=== PATIENT | female | born 1935 | race Two or more races ===

== ENCOUNTER 2016-12-27 15:17 | Inpatient (IN) | payer OTHER, MEDICAID ==
[~2016-12-27] VITALS: Ht 165.1 cm; Wt 63.5 kg
--- NOTE | 2016-12-27 15:32 | Emergency Room Report ---
History of Present Illness General Chief Complaint: Abdominal Pain Source: Patient, Medical Record Present Illness HPI Patient presents with complaints of right mid abdominal pain There is radiation in the mid abdomen lower abdomen pain started for the past several days Patient appears fairly uncomfortable Describes the pain as 8/10 sharp denies any diarrhea or constipation denies any fevers or chills Patient has had previous C-sections Denies any dysuria frequency denies any fall or trauma Allergies: Coded Allergies: No Known Allergies (Unverified , 12/27/16) Patient History Past Medical History: see triage record Pertinent Family History: none Reviewed Nursing Documentation: PMH: Agreed, PSxH: Agreed Nursing Documentation-PM Past Medical History: No History, Except For Hx Diabetes: Yes History Of Psychiatric Problem: Yes - anxiety Review of Systems All Other Systems: negative except mentioned in HPI Physical Exam Vital Signs Date Time Temp Pulse Resp B/P (MAP) Pulse Ox O2 Delivery O2 Flow Rate FiO2 12/27/16 15:12 98.4 88 16 153/90 100 Room Air Sp02 EP Interpretation: reviewed, normal General Appearance: mild distress - in acute pain Head: normocephalic, atraumatic Eyes: bilateral eye PERRL, bilateral eye EOMI ENT: hearing grossly normal, normal pharynx, TMs + canals normal, uvula midline Neck: full range of motion, supple, no meningismus, no bony tend Respiratory: lungs clear, normal breath sounds, no rhonchi, no respiratory distress, no retraction, no accessory muscle use Cardiovascular #1: normal peripheral pulses, regular rate, rhythm, no edema, no gallop, no JVD, no murmur Gastrointestinal: normal bowel sounds, soft, no mass, no organomegaly, non- distended, no guarding, no hernia, no pulsatile mass, no rebound, tenderness - Over the right mid and lower abdominal region, previous surgical scars are visible Genitourinary: no CVA tenderness Musculoskeletal: normal inspection Neurologic: oriented x3, responsive, caser III-XII nml as tested, motor strength/ tone normal, sensory intact Psychiatric: mood/affect normal Skin: normal color, no rash, warm/dry, palpation normal Lymphatic: normal inspection, no adenopathy Medical Decision Making Diagnostic Impression: Primary Impression: Abdominal pain Additional Impression: Gastritis and duodenitis ER Course With the history exam and presentation, multiple differentials considered, including but not limited to appendicitis, gastritis, cholecystitis, diverticulitis Patient's CT imaging shows evidence of possible duodenitis Given the patient's location of the pain and clinical correlation given the patient's continued discomfort her age and risk factors patient requires admission for further care Labs Test 12/27/16 15:33 12/27/16 15:35 Urine Color Pale yellow Urine Appearance Clear Urine pH 8 (4.5-8.0) Urine Specific [place] 1.010 (1.005-1.035) Urine Protein Negative (NEGATIVE) Urine Glucose (UA) Negative (NEGATIVE) Urine Ketones Negative (NEGATIVE) Urine Occult Blood Negative (NEGATIVE) Urine Nitrite Negative (NEGATIVE) Urine Bilirubin Negative (NEGATIVE) Urine Urobilinogen Normal MG/DL (0.0-1.0) Urine Leukocyte Esterase Negative (NEGATIVE) White Blood Count 9.9 K/UL (4.8-10.8) Red Blood Count 4.17 M/UL (4.20-5.40) Hemoglobin 12.9 G/DL (12.0-16.0) Hematocrit 38.9 % (37.0-47.0) Mean Corpuscular Volume 93 FL (80-99) Mean Corpuscular Hemoglobin 30.8 PG (27.0-31.0) Mean Corpuscular Hemoglobin Concent 33.1 G/DL (32.0-36.0) Red Cell Distribution Width 11.3 % (11.6-14.8) Platelet Count 335 K/UL (150-450) Mean Platelet Volume 5.8 FL (6.5-10.1) Neutrophils (%) (Auto) 62.6 % (45.0-75.0) Lymphocytes (%) (Auto) 30.9 % (20.0-45.0) Monocytes (%) (Auto) 4.8 % (1.0-10.0) Eosinophils (%) (Auto) 0.9 % (0.0-3.0) Basophils (%) (Auto) 0.8 % (0.0-2.0) Prothrombin Time 10.4 SEC (9.30-11.50) Prothromb Time International Ratio 1.0 (0.9-1.1) Activated Partial Thromboplast Time 33 SEC (23-33) Sodium Level 133 MMOL/L (136-145) Potassium Level 3.9 MMOL/L (3.5-5.1) Chloride Level 98 MMOL/L (98-107) Carbon Dioxide Level 21 MMOL/L (21-32) Anion Gap 14 (5-15) Blood Urea Nitrogen 11 mg/dL (7-18) Creatinine 0.8 MG/DL (0.55-1.30) Estimat Glomerular Filtration Rate mL/min (>60) Glucose Level 117 MG/DL (74-106) Calcium Level 10.4 MG/DL (8.5-10.1) Total Bilirubin 0.5 MG/DL (0.2-1.0) Aspartate Amino Transf (AST/SGOT) 15 U/L (15-37) Alanine Aminotransferase (ALT/SGPT) 14 U/L (12-78) Alkaline Phosphatase 76 U/L (46-116) Total Creatine Kinase 38 U/L (26-308) Creatine Kinase MB 1.9 NG/ML (0.0-3.6) Creatine Kinase MB Relative Index 5.0 Troponin I 0.000 ng/mL (0.000-0.056) Total Protein 8.4 G/DL (6.4-8.2) Albumin 4.1 G/DL (3.4-5.0) Globulin 4.3 g/dL Albumin/Globulin Ratio 1.0 (1.0-2.7) Lipase 193 U/L (73-393) Rhythm Strip Diag. Results EP Interpretation: yes Rate: 66 Rhythm: NSR, no PVC's, no ectopy Chest X-Ray Diagnostic Results Chest X-Ray Diagnostic Results : Chest X-Ray Ordered: Yes # of Views/Limited/Complete: 1 View Indication: Chest Pain EP Interpretation: Yes Interpretation: no consolidation, no effusion, no pneumothorax Impression: No acute disease Electronically Signed by: Eben Lagunas DO CT/MRI/US Diagnostic Results CT/MRI/US Diagnostic Results : Impression CT abdomen pelvis: Evidence of possible duodenitis, no obvious free air refer to report for specific Last Vital Signs Date Time Temp Pulse Resp B/P (MAP) Pulse Ox O2 Delivery O2 Flow Rate FiO2 12/27/16 15:12 98.4 88 16 153/90 100 Room Air Status: improved Disposition: ADMITTED INPATIENT Condition: Serious EBEN LAGUNAS D.O. Dec 27, 2016 15:32
--- NOTE | 2016-12-27 15:55 | Diagnostic Imaging Report ---
Indication: Chest pain Technique: One view of the chest Comparison: none Findings: The lungs and pleural spaces are clear. The heart size is normal. Aorta is calcified. Impression: No acute process
[2016-12-27 16:00] VITALS: BP 160/74
[2016-12-27 16:06] LABS: APPEARANCE,URINE CLEAR; KETONES,URINE NEGATIVE (NEGATIVE); LEUKOCYTE ESTERASE ,URINE NEGATIVE (NEGATIVE); NITRITE,URINE NEGATIVE (NEGATIVE); PH,URINE 8 (4.5-8.0); PROTEIN,URINE NEGATIVE (NEGATIVE); UROBILINOGEN,URINE NORMAL MG/DL (0.0-1.0)
[2016-12-27 16:33] LABS: BASOPHILS % (AUTO) 0.8 % (0.0-2.0); EOSINOPHILS % (AUTO) 0.9 % (0.0-3.0); LYMPHOCYTES % (AUTO) 30.9 % (20.0-45.0); MEAN CORPUSCULAR HEMOGLOBIN 30.8 PG (27.0-31.0); MEAN CORPUSCULAR HGB CONC 33.1 G/DL (32.0-36.0); MEAN CORPUSCULAR VOLUME 93 FL (80-99); MEAN PLATELET VOLUME 5.8 FL (6.5-10.1); MONOCYTES % (AUTO) 4.8 % (1.0-10.0); NEUTROPHILS % (AUTO) 62.6 % (45.0-75.0); PLATELET COUNT 335 K/UL (150-450); RED BLOOD COUNT 4.17 M/UL (4.20-5.40); RED CELL DISTRIBUTION WIDTH 11.3 % (11.6-14.8); WHITE BLOOD COUNT 9.9 K/UL (4.8-10.8)
[2016-12-27 16:37] LABS: PROTHROMBIN TIME 10.4 SEC (9.30-11.50)
[2016-12-27 16:49] LABS: ALANINE AMINOTRANSFERASE 14 U/L (12-78); ANION GAP 14 (5-15); ASPARTATE AMINO TRANSFERASE 15 U/L (15-37); CALCIUM 10.4 MG/DL (8.5-10.1); CARBON DIOXIDE 21 MMOL/L (21-32); CHLORIDE 98 MMOL/L (98-107); CKMB 1.9 NG/ML (0.0-3.6); CREATININE 0.8 MG/DL (0.55-1.30); LIPASE 193 U/L (73-393); POTASSIUM 3.9 MMOL/L (3.5-5.1); SODIUM 133 MMOL/L (136-145); TOTAL PROTEIN 8.4 G/DL (6.4-8.2)
[2016-12-27] MEDS ORDERED: Famotidine 20 MG/ 2ML VIAL IVP ONE (18:30)
[2016-12-27] MEDS ORDERED: Morphine Sulfate 4mg/ml Inj IVP ONE (18:30)
[2016-12-27] MEDS ORDERED: Dicyclomine HCl 10mg/5ml oral soln ORAL ONE (18:30)
[2016-12-27] MEDS ORDERED: Mylanta II UD 30ml ORAL ONE (18:30)
--- NOTE | 2016-12-27 18:34 | Infectious Diseases Prog Note ---
Assessment/Plan Problems: (1) Gastritis and duodenitis Assessment & Plan: rule out H.pylori, will send stool antigen test, consider EGD with biopsy (2) Abdominal pain Assessment & Plan: due to the above, continue antiacid and pain management as per GI Subjective Allergies: Coded Allergies: No Known Allergies (Unverified , 12/27/16) Objective Vital Signs Last 24 Hour Vital Signs Date Time Temp Pulse Resp B/P (MAP) Pulse Ox O2 Delivery O2 Flow Rate FiO2 12/27/16 16:00 87 14 160/74 100 Room Air 12/27/16 15:12 98.4 88 16 153/90 100 Room Air Height (Feet): 5 Height (Inches): 2.00 Weight (Pounds): 140 Laboratory Tests Test 12/27/16 15:33 12/27/16 15:35 Urine Color Pale yellow Urine Appearance Clear Urine pH 8 (4.5-8.0) Urine Specific [place] 1.010 (1.005-1.035) Urine Protein Negative (NEGATIVE) Urine Glucose (UA) Negative (NEGATIVE) Urine Ketones Negative (NEGATIVE) Urine Occult Blood Negative (NEGATIVE) Urine Nitrite Negative (NEGATIVE) Urine Bilirubin Negative (NEGATIVE) Urine Urobilinogen Normal MG/DL (0.0-1.0) Urine Leukocyte Esterase Negative (NEGATIVE) White Blood Count 9.9 K/UL (4.8-10.8) Red Blood Count 4.17 M/UL (4.20-5.40) L Hemoglobin 12.9 G/DL (12.0-16.0) Hematocrit 38.9 % (37.0-47.0) Mean Corpuscular Volume 93 FL (80-99) Mean Corpuscular Hemoglobin 30.8 PG (27.0-31.0) Mean Corpuscular Hemoglobin Concent 33.1 G/DL (32.0-36.0) Red Cell Distribution Width 11.3 % (11.6-14.8) L Platelet Count 335 K/UL (150-450) Mean Platelet Volume 5.8 FL (6.5-10.1) L Neutrophils (%) (Auto) 62.6 % (45.0-75.0) Lymphocytes (%) (Auto) 30.9 % (20.0-45.0) Monocytes (%) (Auto) 4.8 % (1.0-10.0) Eosinophils (%) (Auto) 0.9 % (0.0-3.0) Basophils (%) (Auto) 0.8 % (0.0-2.0) Prothrombin Time 10.4 SEC (9.30-11.50) Prothromb Time International Ratio 1.0 (0.9-1.1) Activated Partial Thromboplast Time 33 SEC (23-33) Sodium Level 133 MMOL/L (136-145) L Potassium Level 3.9 MMOL/L (3.5-5.1) Chloride Level 98 MMOL/L (98-107) Carbon Dioxide Level 21 MMOL/L (21-32) Anion Gap 14 (5-15) Blood Urea Nitrogen 11 mg/dL (7-18) Creatinine 0.8 MG/DL (0.55-1.30) Estimat Glomerular Filtration Rate mL/min (>60) Glucose Level 117 MG/DL (74-106) H Calcium Level 10.4 MG/DL (8.5-10.1) H Total Bilirubin 0.5 MG/DL (0.2-1.0) Aspartate Amino Transf (AST/SGOT) 15 U/L (15-37) Alanine Aminotransferase (ALT/SGPT) 14 U/L (12-78) Alkaline Phosphatase 76 U/L (46-116) Total Creatine Kinase 38 U/L (26-308) Creatine Kinase MB 1.9 NG/ML (0.0-3.6) Creatine Kinase MB Relative Index 5.0 Troponin I 0.000 ng/mL (0.000-0.056) Total Protein 8.4 G/DL (6.4-8.2) H Albumin 4.1 G/DL (3.4-5.0) Globulin 4.3 g/dL Albumin/Globulin Ratio 1.0 (1.0-2.7) Lipase 193 U/L (73-393) Current Medications Medications (Trade) Dose Ordered Sig/Clem Route PRN Reason Start Time Stop Time Status Last Admin Dose Admin Al Hydroxide/Mg Hydroxide (Mylanta II) 30 ml ONCE ONCE ORAL 12/27/16 18:30 12/27/16 18:31 Dicyclomine HCl (Bentyl) 10 mg ONCE ONCE ORAL 12/27/16 18:30 12/27/16 18:31 Famotidine (Pepcid I.v.) 20 mg ONCE ONCE IVP 12/27/16 18:30 12/27/16 18:31 Morphine Sulfate (Morphine Sulfate) 4 mg ONCE ONCE IVP 12/27/16 18:30 12/27/16 18:31 Ondansetron HCl (Zofran) 4 mg ONCE ONCE IVP 12/27/16 18:30 12/27/16 18:31 Salas Acevedo M.D. Dec 27, 2016 18:34
[2016-12-27] MEDS ORDERED: ASPIRIN EC81 MG ORAL (19:39)
[2016-12-27] MEDS ORDERED: CALCIUM500 M2 PO (19:39)
[2016-12-27] MEDS ORDERED: TRUSOPT10 ML BOTH EYES ×2 (19:39→19:40)
[2016-12-27] MEDS ORDERED: METFORMIN HCL1000 M1 ORAL (19:39)
[2016-12-27] MEDS ORDERED: AMLODIPINE BESYL5 MG ORAL (19:39)
[2016-12-27] MEDS ORDERED: BENAZEPRIL HCL40 MG ORAL (19:39)
[2016-12-27] MEDS ORDERED: OMEGA-31000 M1 PO (19:39)
[2016-12-27] MEDS ORDERED: VITAMIN C500 M1 ORAL (19:39)
[2016-12-27] MEDS ORDERED: XALATAN2.5 ML BOTH EYES (19:39)
[2016-12-27 19:40] VITALS: BP 125/61
[2016-12-27 20:00] VITALS: BP 134/60
[2016-12-27] MEDS ORDERED: Morphine Sulfate 2mg/ml Inj IVP PRN (23:30)
[2016-12-27] MEDS: D5NS 1,000 ML IV SCH (23:59)
[2016-12-28] VITALS: BP 131/60
[2016-12-28 05:14] VITALS: BP 145/67
[2016-12-28 07:20] LABS: BASOPHILS % (AUTO) 0.8 % (0.0-2.0); EOSINOPHILS % (AUTO) 1.5 % (0.0-3.0); LYMPHOCYTES % (AUTO) 39.1 % (20.0-45.0); MEAN CORPUSCULAR HEMOGLOBIN 31.2 PG (27.0-31.0); MEAN CORPUSCULAR VOLUME 92 FL (80-99); MONOCYTES % (AUTO) 7.2 % (1.0-10.0); NEUTROPHILS % (AUTO) 51.4 % (45.0-75.0); PLATELET COUNT 306 K/UL (150-450); RED BLOOD COUNT 3.67 M/UL (4.20-5.40); RED CELL DISTRIBUTION WIDTH 11.3 % (11.6-14.8); WHITE BLOOD COUNT 6.5 K/UL (4.8-10.8)
[2016-12-28 07:39] LABS: ALANINE AMINOTRANSFERASE 11 U/L (12-78); ALBUMIN/GLOBULIN RATIO 0.9 (1.0-2.7); ANION GAP 6 (5-15); ASPARTATE AMINO TRANSFERASE 11 U/L (15-37); CALCIUM 9.1 MG/DL (8.5-10.1); CARBON DIOXIDE 26 MMOL/L (21-32); CHLORIDE 101 MMOL/L (98-107); CREATININE 0.7 MG/DL (0.55-1.30); MAGNESIUM 1.5 MG/DL (1.8-2.4); PHOSPHORUS 4.1 MG/DL (2.5-4.9); POTASSIUM 3.7 MMOL/L (3.5-5.1); SODIUM 133 MMOL/L (136-145); THYROID STIMULATING HORMONE 0.613 uiU/mL (0.360-3.740); TOTAL PROTEIN 6.3 G/DL (6.4-8.2); URIC ACID 4.5 MG/DL (2.6-7.2)
[2016-12-28 07:53] LABS: CRP QUANT < 0.4 mg/dL (0.00-0.90)
[2016-12-28 08:00] VITALS: BP 146/61
[2016-12-28] MEDS ORDERED: Ascorbic Acid 500mg tab ORAL SCH (09:00)
[2016-12-28] MEDS: Aspirin Baby 81mg ORAL SCH (09:35)
[2016-12-28] MEDS: Tums 500mg ORAL SCH (09:35)
[2016-12-28] MEDS: Dorzolamide 2% Btl BOTH EYES SCH ×2 (09:51→18:47)
--- NOTE | 2016-12-28 10:06 | Diagnostic Imaging Report ---
Clinical Indication: PAIN Technique: No oral contrast utilized, per emergency room physician request IV administration nonionic contrast. Venous phase spiral acquisition obtained through the abdomen and pelvis. Multiplanar reconstructions were generated. Total dose length product 645 mGycm. CTDIvol(s) 13 mGy. Dose reduction achieved using automated exposure control Comparison: None Findings: There is colonic diverticulosis. No evidence of diverticulitis. The colon is somewhat fluid filled, nondistended. Appendix is normal. The small bowel is nondistended but somewhat fluid-filled as well, and there is mild mural enhancement although no definite wall thickening. The distal esophagus demonstrates a small sliding-type hiatal hernia. There is equivocal wall thickening of the gastric antrum and duodenal bulb, although this is probably just artifact of under distention. No free or loculated intraperitoneal air or fluid is evident. There is diastasis of the rectus abdominis tendon but no bobby herniation. There is also a tiny fat-containing umbilical hernia. The liver demonstrates a subcentimeter low-attenuation lesion in the periphery of segment 5. Low-attenuation adjacent to the falciform ligament is consistent with focal fatty infiltration. The gallbladder is nondistended. No biliary ductal dilatation. The pancreas, spleen adrenals are unremarkable. The kidneys demonstrate lobulated contours bilaterally. There are subcentimeter low-attenuation renal lesions bilaterally, which are too small to characterize. There is mild bilateral hydronephrosis, but no definite downstream obstructive lesion in either ureter. The bladder is mildly distended. The uterus is unremarkable. There is a 2.6 cm cyst in the left ovary. This is unilocular with a perceptible wall. No pelvic mass or adenopathy otherwise. There are degenerative changes of the lumbar spine. The included lung bases are clear. Impression: Somewhat fluid-filled colon and distal small bowel, could indicate mild enteritis changes. Correlate with clinical findings Equivocal wall thickening of the distal gastric antrum and proximal duodenum, more likely an artifact of under distention but arthritis/duodenitis or peptic also disease also a possibility No acute process otherwise Bilateral mild hydronephrosis without evidence of downstream obstructive lesion. Possibly due to bladder distention. Possibility of urinary tract infection should also be considered. Correlate with clinical and laboratory findings Diastasis of the rectus abdominis tendon without bobby herniation 2.6 cm left ovarian cyst. Consider further evaluation with ultrasound Subcentimeter bilateral low-attenuation renal lesions, too small to characterize, likely benign simple cysts. Subcentimeter low-attenuation right lobe liver lesion, most likely benign simple cysts or bile hamartomas. No further followup necessary Other findings as noted, including degenerative spondylosis, or focal hepatic fatty change, tiny fat-containing umbilical hernia The CT scanner at [facility] is accredited by the [employer] and the scans are performed using protocols designed to limit radiation exposure to as low as reasonably achievable to attain images of sufficient resolution adequate for diagnostic evaluation.
--- NOTE | 2016-12-28 10:56 | Consultation ---
History of Present Illness General Date patient seen: Dec 28, 2016 Chief Complaint: Abdominal Pain Present Illness HPI 81F with abdominal pain for few weeks now. Patient accompaied by son. States that she has been having cramping vague 10/10 intermittent mid abdominal pain for some time now. No associated nausea or emesis. no fever or chills. no radiation of pain. describes it as an "internal cramping". Had similar event 2 weeks ago and went to [facility] where after workup no organic etiology was identified and she was discharged. States pain has persisted since and causing discomfort to a point that she had to come to hospital again. Normal BM's. Passing flatus. good UOP. Allergies: Coded Allergies: No Known Allergies (Unverified , 12/27/16) Medication History Scheduled Amlodipine Besylate* (Amlodipine Besylate*), 5 MG ORAL DAILY, (Reported) Ascorbic Acid* (Vitamin C*), 500 MG ORAL DAILY, (Reported) Aspirin Ec* (Aspirin Ec*), 81 MG ORAL DAILY, (Reported) Benazepril Hcl* (Benazepril Hcl*), 40 MG ORAL DAILY, (Reported) Dorzolamide Hcl* (Trusopt*), 1 DROP BOTH EYES BID, (Reported) Latanoprost* (Xalatan*), 1 DROP BOTH EYES BID, (Reported) Metformin Hcl* (Metformin Hcl*), 1,000 MG ORAL BID, (Reported) Miscellaneous Medications Calcium Carbonate (Calcium), 500 MG PO, (Reported) [place]-3 Fatty Acids ([place]-3), 1,000 MG PO, (Reported) Patient History History Provided By: Patient, Family Member Healthcare decision maker Resuscitation status Full Code Advanced Directive on File Past Medical/Surgical History Past Medical/Surgical History: (1) Abdominal pain (2) Gastritis and duodenitis Review of Systems All Other Systems: negative except mentioned in HPI Physical Exam General Appearance: no apparent distress Lines, tubes and drains: peripheral HEENT: PERRL Neck: normal inspection Respiratory/Chest: normal breath sounds, no respiratory distress Cardiovascular/Chest: normal peripheral pulses Abdomen: normal bowel sounds, soft, no organomegaly, no mass, other - soft, non distended, tender in mid abdomen but no rebound or guarding. no peritonitis. no acute abdomen. no RUQ pain. Extremities: normal range of motion Skin Exam: normal pigmentation Neurologic: alert, oriented x 3, responsive Last 24 Hour Vital Signs Date Time Temp Pulse Resp B/P (MAP) Pulse Ox O2 Delivery O2 Flow Rate FiO2 12/28/16 09:35 146/61 12/28/16 09:35 74 146/61 12/28/16 08:00 97.5 74 17 146/61 98 Room Air 12/28/16 05:14 98.3 75 20 145/67 98 Room Air 12/28/16 00:00 97.9 74 18 131/60 97 Room Air 12/27/16 20:10 86 14 125/61 96 Room Air 12/27/16 20:00 96.8 89 18 134/60 95 Room Air 12/27/16 19:40 98.4 86 14 125/61 96 Room Air 12/27/16 16:00 87 14 160/74 100 Room Air 12/27/16 15:12 98.4 88 16 153/90 100 Room Air Intake and Output 12/28/16 12/29/16 19:00 07:00 Intake Total 50 ml Balance 50 ml Intake IV Total 50 ml Laboratory Tests Test 12/27/16 15:33 12/27/16 15:35 12/28/16 05:45 Urine Color Pale yellow Urine Appearance Clear Urine pH 8 (4.5-8.0) Urine Specific [place] 1.010 (1.005-1.035) Urine Protein Negative (NEGATIVE) Urine Glucose (UA) Negative (NEGATIVE) Urine Ketones Negative (NEGATIVE) Urine Occult Blood Negative (NEGATIVE) Urine Nitrite Negative (NEGATIVE) Urine Bilirubin Negative (NEGATIVE) Urine Urobilinogen Normal MG/DL (0.0-1.0) Urine Leukocyte Esterase Negative (NEGATIVE) White Blood Count 9.9 K/UL (4.8-10.8) 6.5 K/UL (4.8-10.8) Red Blood Count 4.17 M/UL (4.20-5.40) L 3.67 M/UL (4.20-5.40) L Hemoglobin 12.9 G/DL (12.0-16.0) 11.4 G/DL (12.0-16.0) L Hematocrit 38.9 % (37.0-47.0) 33.6 % (37.0-47.0) L Mean Corpuscular Volume 93 FL (80-99) 92 FL (80-99) Mean Corpuscular Hemoglobin 30.8 PG (27.0-31.0) 31.2 PG (27.0-31.0) H Mean Corpuscular Hemoglobin Concent 33.1 G/DL (32.0-36.0) 34.0 G/DL (32.0-36.0) Red Cell Distribution Width 11.3 % (11.6-14.8) L 11.3 % (11.6-14.8) L Platelet Count 335 K/UL (150-450) 306 K/UL (150-450) Mean Platelet Volume 5.8 FL (6.5-10.1) L 6.0 FL (6.5-10.1) L Neutrophils (%) (Auto) 62.6 % (45.0-75.0) 51.4 % (45.0-75.0) Lymphocytes (%) (Auto) 30.9 % (20.0-45.0) 39.1 % (20.0-45.0) Monocytes (%) (Auto) 4.8 % (1.0-10.0) 7.2 % (1.0-10.0) Eosinophils (%) (Auto) 0.9 % (0.0-3.0) 1.5 % (0.0-3.0) Basophils (%) (Auto) 0.8 % (0.0-2.0) 0.8 % (0.0-2.0) Prothrombin Time 10.4 SEC (9.30-11.50) Prothromb Time International Ratio 1.0 (0.9-1.1) Activated Partial Thromboplast Time 33 SEC (23-33) Sodium Level 133 MMOL/L (136-145) L 133 MMOL/L (136-145) L Potassium Level 3.9 MMOL/L (3.5-5.1) 3.7 MMOL/L (3.5-5.1) Chloride Level 98 MMOL/L (98-107) 101 MMOL/L (98-107) Carbon Dioxide Level 21 MMOL/L (21-32) 26 MMOL/L (21-32) Anion Gap 14 (5-15) 6 (5-15) Blood Urea Nitrogen 11 mg/dL (7-18) 11 mg/dL (7-18) Creatinine 0.8 MG/DL (0.55-1.30) 0.7 MG/DL (0.55-1.30) Estimat Glomerular Filtration Rate mL/min (>60) mL/min (>60) Glucose Level 117 MG/DL (74-106) H 116 MG/DL (74-106) H Calcium Level 10.4 MG/DL (8.5-10.1) H 9.1 MG/DL (8.5-10.1) Total Bilirubin 0.5 MG/DL (0.2-1.0) 0.5 MG/DL (0.2-1.0) Aspartate Amino Transf (AST/SGOT) 15 U/L (15-37) 11 U/L (15-37) L Alanine Aminotransferase (ALT/SGPT) 14 U/L (12-78) 11 U/L (12-78) L Alkaline Phosphatase 76 U/L (46-116) 53 U/L (46-116) Total Creatine Kinase 38 U/L (26-308) Creatine Kinase MB 1.9 NG/ML (0.0-3.6) Creatine Kinase MB Relative Index 5.0 Troponin I 0.000 ng/mL (0.000-0.056) Total Protein 8.4 G/DL (6.4-8.2) H 6.3 G/DL (6.4-8.2) L Albumin 4.1 G/DL (3.4-5.0) 2.9 G/DL (3.4-5.0) L Globulin 4.3 g/dL 3.4 g/dL Albumin/Globulin Ratio 1.0 (1.0-2.7) 0.9 (1.0-2.7) L Lipase 193 U/L (73-393) Uric Acid 4.5 MG/DL (2.6-7.2) Phosphorus Level 4.1 MG/DL (2.5-4.9) Magnesium Level 1.5 MG/DL (1.8-2.4) L Gamma Glutamyl Transpeptidase 12 U/L (5-85) C-Reactive Protein, Quantitative < 0.4 mg/dL (0.00-0.90) Pro-B-Type Natriuretic Peptide 81 (0-125) Thyroid Stimulating Hormone (TSH) 0.613 uiU/mL (0.360-3.740) Height (Feet): 5 Height (Inches): 2.00 Weight (Pounds): 140 Medications Current Medications Medications (Trade) Dose Ordered Sig/Clem Route PRN Reason Start Time Stop Time Status Last Admin Dose Admin Acetaminophen (Tylenol) 650 mg Q4H PRN ORAL Mild Pain/Temp > 100.5 12/27/16 23:30 01/26/17 23:29 Amlodipine Besylate (Norvasc) 5 mg DAILY ORAL 12/28/16 09:00 01/27/17 08:59 12/28/16 09:35 Ascorbic Acid (Vitamin C) 500 mg DAILY ORAL 12/28/16 09:00 01/27/17 08:59 12/28/16 09:35 Aspirin (ASA) 81 mg DAILY ORAL 12/28/16 09:00 01/27/17 08:59 12/28/16 09:35 Benazepril HCl (Lotensin) 40 mg DAILY ORAL 12/28/16 09:00 01/27/17 08:59 12/28/16 09:35 Calcium Carbonate (Tums) 500 mg DAILY ORAL 12/28/16 09:00 01/27/17 08:59 12/28/16 09:35 Dextrose (Dextrose 50%) 50 ml AC+HS PRN IV Hypoglycemia 12/27/16 23:30 01/26/17 23:29 Dextrose/Sodium Chloride 1,000 ml @ 50 mls/hr Q20H IV 12/27/16 21:30 01/26/17 21:29 12/27/16 23:59 Dorzolamide HCl (Trusopt) 1 drop BID BOTH EYES 12/28/16 09:00 01/27/17 08:59 Latanoprost (Xalatan) 1 drop BID BOTH EYES 12/28/16 09:00 01/27/17 08:59 Magnesium Sulfate 100 ml @ 100 mls/hr Q1H IVPB 12/28/16 10:00 12/28/16 11:59 12/28/16 10:04 Morphine Sulfate (Morphine Sulfate) 2 mg Q4H PRN IVP For Pain 12/27/16 23:30 01/03/17 23:29 Ondansetron HCl (Zofran) 4 mg Q6H PRN IVP Nausea & Vomiting 12/27/16 23:30 01/26/17 23:29 Assessment/Plan Problem List: (1) Abdominal pain Assessment & Plan: 81F with abdominal pain. no n/v/f/c. labs normal. no leukocytosis, normal liver function panel. CT without significant biliary findings but did demonstrated some gastritis. exam with vague mid abdominal pain but no rebound or guarding. does not seem biliary in nature. patient was diagnosed with cholelithiasis during last hospitalization but this seems to be an incidental finding during work up for abdominal pain. distribution of pain, labs, history, and exam are not of biliary colic. -GI evaluation -PPI -will follow with serial exams. thank you for this consultation ICD Codes: R10.9 - Unspecified abdominal pain SNOMED: [id number] Status: stable [email or web address] Dec 28, 2016 10:56
[2016-12-28 13:07] VITALS: BP 155/75
--- NOTE | 2016-12-28 14:28 | Consultation ---
Consult Note Consult Note admitted with abdominal pain- electrolytes abnormal 81F with abdominal pain for few weeks now. Patient accompaied by son. States that she has been having cramping vague 10/10 intermittent mid abdominal pain for some time now. No associated nausea or emesis. no fever or chills. no radiation of pain. describes it as an "internal cramping". Had similar event 2 weeks ago and went to [facility] where after workup no organic etiology was identified and she was discharged. States pain has persisted since and causing discomfort to a point that she had to come to hospital again. Normal BM's. Passing flatus. good UOP. examined- data reviewed Assessment/Plan HTN DM Abd Pain Low Na low Mg adjust BP meds- mag and Na supplement JOEL HERNANDEZ Dec 28, 2016 14:27
[2016-12-28 16:00] VITALS: BP 146/70
[2016-12-28] MEDS ORDERED: Nulytely 4L ORAL ONE (16:00)
[2016-12-28] MEDS ORDERED: Bisacodyl EC 5mg tab ORAL ONE (16:00)
--- NOTE | 2016-12-28 16:09 | Infectious Diseases Prog Note ---
Assessment/Plan Problems: (1) Gastritis and duodenitis Assessment & Plan: rule out H.pylori, serology tests are pending , consider GI consult for EGD with biopsy (2) Abdominal pain Assessment & Plan: due to the above, continue antiacid and pain management as per GI (3) Diabetes mellitus Assessment & Plan: recommend tight glycemic control to keep blood glucose between 80-130 premeals Subjective Constitutional: Reports: no symptoms HEENT: Reports: no symptoms Respiratory: Reports: no symptoms Breasts: Reports: no symptoms Cardiovascular: Reports: no symptoms Genitourinary: Reports: no symptoms Neurologic: Reports: no symptoms Psychiatric: Reports: no symptoms Skin: Reports: no symptoms Endocrine: Reports: no symptoms Hematologic: Reports: no symptoms Musculoskeletal: Reports: no symptoms Allergies: Coded Allergies: No Known Allergies (Unverified , 12/27/16) Objective Vital Signs Last 24 Hour Vital Signs Date Time Temp Pulse Resp B/P (MAP) Pulse Ox O2 Delivery O2 Flow Rate FiO2 12/28/16 13:07 97.0 73 15 155/75 100 Room Air 12/28/16 09:35 146/61 12/28/16 09:35 74 146/61 12/28/16 08:00 97.5 74 17 146/61 98 Room Air 12/28/16 05:14 98.3 75 20 145/67 98 Room Air 12/28/16 00:00 97.9 74 18 131/60 97 Room Air 12/27/16 20:10 86 14 125/61 96 Room Air 12/27/16 20:00 96.8 89 18 134/60 95 Room Air 12/27/16 19:40 98.4 86 14 125/61 96 Room Air Height (Feet): 5 Height (Inches): 2.00 Weight (Pounds): 140 General Appearance: WD/WN, no acute distress HEENT: normocephalic, atraumatic, anicteric, mucous membranes moist, PERRL Respiratory/Chest: chest wall non-tender, lungs clear, normal breath sounds, no respiratory distress, no accessory muscle use Cardiovascular: normal peripheral pulses, normal rate, regular rhythm, no gallop/murmur, no JVD Abdomen: no organomegaly, non distended, no mass, hypoactive bowel sounds, distended, tender Genitourinary: normal external genitalia Extremities: no cyanosis, no clubbing Skin: no rash, no lesions, no ulcers Neurologic/Psychiatric: alert, oriented x 3 Lymphatic: no neck adenopathy, no groin adenopathy Musculoskeletal: normal muscle bulk, no effusion Laboratory Tests Test 12/28/16 05:45 White Blood Count 6.5 K/UL (4.8-10.8) Red Blood Count 3.67 M/UL (4.20-5.40) L Hemoglobin 11.4 G/DL (12.0-16.0) L Hematocrit 33.6 % (37.0-47.0) L Mean Corpuscular Volume 92 FL (80-99) Mean Corpuscular Hemoglobin 31.2 PG (27.0-31.0) H Mean Corpuscular Hemoglobin Concent 34.0 G/DL (32.0-36.0) Red Cell Distribution Width 11.3 % (11.6-14.8) L Platelet Count 306 K/UL (150-450) Mean Platelet Volume 6.0 FL (6.5-10.1) L Neutrophils (%) (Auto) 51.4 % (45.0-75.0) Lymphocytes (%) (Auto) 39.1 % (20.0-45.0) Monocytes (%) (Auto) 7.2 % (1.0-10.0) Eosinophils (%) (Auto) 1.5 % (0.0-3.0) Basophils (%) (Auto) 0.8 % (0.0-2.0) Sodium Level 133 MMOL/L (136-145) L Potassium Level 3.7 MMOL/L (3.5-5.1) Chloride Level 101 MMOL/L (98-107) Carbon Dioxide Level 26 MMOL/L (21-32) Anion Gap 6 (5-15) Blood Urea Nitrogen 11 mg/dL (7-18) Creatinine 0.7 MG/DL (0.55-1.30) Estimat Glomerular Filtration Rate mL/min (>60) Glucose Level 116 MG/DL (74-106) H Uric Acid 4.5 MG/DL (2.6-7.2) Calcium Level 9.1 MG/DL (8.5-10.1) Phosphorus Level 4.1 MG/DL (2.5-4.9) Magnesium Level 1.5 MG/DL (1.8-2.4) L Total Bilirubin 0.5 MG/DL (0.2-1.0) Gamma Glutamyl Transpeptidase 12 U/L (5-85) Aspartate Amino Transf (AST/SGOT) 11 U/L (15-37) L Alanine Aminotransferase (ALT/SGPT) 11 U/L (12-78) L Alkaline Phosphatase 53 U/L (46-116) C-Reactive Protein, Quantitative < 0.4 mg/dL (0.00-0.90) Pro-B-Type Natriuretic Peptide 81 (0-125) Total Protein 6.3 G/DL (6.4-8.2) L Albumin 2.9 G/DL (3.4-5.0) L Globulin 3.4 g/dL Albumin/Globulin Ratio 0.9 (1.0-2.7) L Thyroid Stimulating Hormone (TSH) 0.613 uiU/mL (0.360-3.740) Helicobacter pylori IgG Antibody Pending Helicobacter pylori IgM Antibody Pending Current Medications Medications (Trade) Dose Ordered Sig/Clem Route PRN Reason Start Time Stop Time Status Last Admin Dose Admin Acetaminophen (Tylenol) 650 mg Q4H PRN ORAL Mild Pain/Temp > 100.5 12/27/16 23:30 01/26/17 23:29 Amlodipine Besylate (Norvasc) 5 mg DAILY ORAL 12/28/16 09:00 01/27/17 08:59 12/28/16 09:35 Aspirin (ASA) 81 mg DAILY ORAL 12/28/16 09:00 01/27/17 08:59 12/28/16 09:35 Benazepril HCl (Lotensin) 40 mg DAILY ORAL 12/28/16 09:00 01/27/17 08:59 12/28/16 09:35 Bisacodyl (Dulcolax) 10 mg ONCE ONCE ORAL 12/28/16 16:00 12/28/16 16:01 12/28/16 15:35 Calcium Carbonate (Tums) 500 mg DAILY ORAL 12/28/16 09:00 01/27/17 08:59 12/28/16 09:35 Dextrose (Dextrose 50%) 50 ml AC+HS PRN IV Hypoglycemia 12/27/16 23:30 01/26/17 23:29 Dextrose/Sodium Chloride 1,000 ml @ 50 mls/hr Q20H IV 12/27/16 21:30 01/26/17 21:29 12/27/16 23:59 Dorzolamide HCl (Trusopt) 1 drop BID BOTH EYES 12/28/16 09:00 01/27/17 08:59 Latanoprost (Xalatan) 1 drop BID BOTH EYES 12/28/16 09:00 01/27/17 08:59 Morphine Sulfate (Morphine Sulfate) 2 mg Q4H PRN IVP For Pain 12/27/16 23:30 01/03/17 23:29 Ondansetron HCl (Zofran) 4 mg Q6H PRN IVP Nausea & Vomiting 12/27/16 23:30 01/26/17 23:29 Polyethylene Glycol/ Electrolytes (Nulytely) 4,000 ml ONCE ONCE ORAL 12/28/16 16:00 12/28/16 16:01 12/28/16 15:34 Salas Acevedo M.D. Dec 28, 2016 16:09
[2016-12-28] MEDS: D5NS 1,000 ML IV SCH (16:32)
--- NOTE | 2016-12-28 17:43 | GI Initial Consult Note ---
FernandezQian Henriquez N.P. 12/28/16 1743: History of Present Illness General Date patient seen: Dec 28, 2016 Time patient seen: 13:00 Reason for Hospitalization: Abdominal Pain Referring physician: THELMA PATTEN Reason for Consultation: ABDOMINAL PAIN Present Illness HPI Patient presents with complaints of right mid abdominal pain There is radiation in the mid abdomen lower abdomen pain started for the past several days Patient appears fairly uncomfortable Describes the pain as 8/10 sharp denies any diarrhea or constipation denies any fevers or chills Patient has had previous C-sections Denies any dysuria frequency denies any fall or trauma GI consulted for abdominal pain. HPI as noted above. Pt seen on floor, awake A&Ox4 NAD with son by bedside. No active s/sx of N/V/D at this time. C/o of RUQ pain, recently seen by Dr. Lemon discussed with patient no GB stones present. CT AP shows duodenitis, see full report. Presents today with anemia and electrolyte imbalance. The patient has no history of endoscopic or colonoscopies. Home Meds Reported Medications Dorzolamide Hcl* (TRUSOPT*) 10 Ml Drops, 1 DROP BOTH EYES BID, #1 ML 0 Refills 12/27/16 Ascorbic Acid* (VITAMIN C*) 500 Mg Tablet, 500 MG ORAL DAILY, #30 TAB 0 Refills 12/27/16 Calcium Carbonate (CALCIUM) 500 Mg Tablet, 500 MG PO, TAB 12/27/16 [place]-3 Fatty Acids (OMEGA-3) 1,000 Mg Capsule, 1000 MG PO, CAP 12/27/16 Benazepril Hcl* (BENAZEPRIL HCL*) 40 Mg Tablet, 40 MG ORAL DAILY, TAB 12/27/16 Aspirin Ec* (ASPIRIN EC*) 81 Mg Tablet.dr 81 MG ORAL DAILY, TAB 12/27/16 Metformin Hcl* (METFORMIN HCL*) 1,000 Mg Tablet, 1000 MG ORAL BID, TAB 12/27/16 Amlodipine Besylate* (AMLODIPINE BESYLATE*) 5 Mg Tablet, 5 MG ORAL DAILY, TAB 12/27/16 Latanoprost* (XALATAN*) 2.5 Ml Drops, 1 DROP BOTH EYES BID, #2.5 ML 0 Refills 12/27/16 Med list reviewed/reconciled: Yes Allergies: Coded Allergies: No Known Allergies (Unverified , 12/27/16) Patient History PMH Narrative Past Medical History: see triage record Pertinent Family History: none Reviewed Nursing Documentation: PMH: Agreed, PSxH: Agreed Nursing Documentation-PMH Past Medical History: No History, Except For Hx Diabetes: Yes History Of Psychiatric Problem: Yes - anxiety Social History: Denies: smoking, alcohol use, drug use, other Review of Systems All Other Systems: negative except mentioned in HPI Physical Exam Vital Signs Date Time Temp Pulse Resp B/P (MAP) Pulse Ox O2 Delivery O2 Flow Rate FiO2 12/27/16 15:12 98.4 88 16 153/90 100 Room Air Sp02 EP Interpretation: reviewed Labs Laboratory Tests Test 12/28/16 05:45 White Blood Count 6.5 K/UL (4.8-10.8) Red Blood Count 3.67 M/UL (4.20-5.40) L Hemoglobin 11.4 G/DL (12.0-16.0) L Hematocrit 33.6 % (37.0-47.0) L Mean Corpuscular Volume 92 FL (80-99) Mean Corpuscular Hemoglobin 31.2 PG (27.0-31.0) H Mean Corpuscular Hemoglobin Concent 34.0 G/DL (32.0-36.0) Red Cell Distribution Width 11.3 % (11.6-14.8) L Platelet Count 306 K/UL (150-450) Mean Platelet Volume 6.0 FL (6.5-10.1) L Neutrophils (%) (Auto) 51.4 % (45.0-75.0) Lymphocytes (%) (Auto) 39.1 % (20.0-45.0) Monocytes (%) (Auto) 7.2 % (1.0-10.0) Eosinophils (%) (Auto) 1.5 % (0.0-3.0) Basophils (%) (Auto) 0.8 % (0.0-2.0) Sodium Level 133 MMOL/L (136-145) L Potassium Level 3.7 MMOL/L (3.5-5.1) Chloride Level 101 MMOL/L (98-107) Carbon Dioxide Level 26 MMOL/L (21-32) Anion Gap 6 (5-15) Blood Urea Nitrogen 11 mg/dL (7-18) Creatinine 0.7 MG/DL (0.55-1.30) Estimat Glomerular Filtration Rate mL/min (>60) Glucose Level 116 MG/DL (74-106) H Uric Acid 4.5 MG/DL (2.6-7.2) Calcium Level 9.1 MG/DL (8.5-10.1) Phosphorus Level 4.1 MG/DL (2.5-4.9) Magnesium Level 1.5 MG/DL (1.8-2.4) L Total Bilirubin 0.5 MG/DL (0.2-1.0) Gamma Glutamyl Transpeptidase 12 U/L (5-85) Aspartate Amino Transf (AST/SGOT) 11 U/L (15-37) L Alanine Aminotransferase (ALT/SGPT) 11 U/L (12-78) L Alkaline Phosphatase 53 U/L (46-116) C-Reactive Protein, Quantitative < 0.4 mg/dL (0.00-0.90) Pro-B-Type Natriuretic Peptide 81 (0-125) Total Protein 6.3 G/DL (6.4-8.2) L Albumin 2.9 G/DL (3.4-5.0) L Globulin 3.4 g/dL Albumin/Globulin Ratio 0.9 (1.0-2.7) L Thyroid Stimulating Hormone (TSH) 0.613 uiU/mL (0.360-3.740) Helicobacter pylori IgG Antibody Pending Helicobacter pylori IgM Antibody Pending General Appearance: well appearing, no apparent distress, alert Head: normocephalic EENT: PERRL/EOMI, normal ENT inspection Neck: supple Respiratory: normal breath sounds, no respiratory distress Cardiovascular: normal rate Gastrointestinal: normal inspection, non tender, soft Rectal: deferred Musculoskeletal: back normal Neurologic: normal inspection, alert, oriented x3, responsive Psychiatric: normal inspection, judgement/insight normal, memory normal Skin: normal inspection, normal color, no rash, warm/dry Lymphatic: normal inspection, no adenopathy Current Medications Current Medications Medications (Trade) Dose Ordered Sig/Clem Route PRN Reason Start Time Stop Time Status Last Admin Dose Admin Acetaminophen (Tylenol) 650 mg Q4H PRN ORAL Mild Pain/Temp > 100.5 12/27/16 23:30 01/26/17 23:29 Amlodipine Besylate (Norvasc) 5 mg DAILY ORAL 12/28/16 09:00 01/27/17 08:59 12/28/16 09:35 Aspirin (ASA) 81 mg DAILY ORAL 12/28/16 09:00 01/27/17 08:59 12/28/16 09:35 Benazepril HCl (Lotensin) 40 mg DAILY ORAL 12/28/16 09:00 01/27/17 08:59 12/28/16 09:35 Calcium Carbonate (Tums) 500 mg DAILY ORAL 12/28/16 09:00 01/27/17 08:59 12/28/16 09:35 Dextrose (Dextrose 50%) 50 ml AC+HS PRN IV Hypoglycemia 12/27/16 23:30 01/26/17 23:29 Dextrose/Sodium Chloride 1,000 ml @ 50 mls/hr Q20H IV 12/27/16 21:30 01/26/17 21:29 12/28/16 16:32 Dorzolamide HCl (Trusopt) 1 drop BID BOTH EYES 12/28/16 09:00 01/27/17 08:59 Latanoprost (Xalatan) 1 drop BID BOTH EYES 12/28/16 09:00 01/27/17 08:59 Morphine Sulfate (Morphine Sulfate) 2 mg Q4H PRN IVP For Pain 12/27/16 23:30 01/03/17 23:29 Ondansetron HCl (Zofran) 4 mg Q6H PRN IVP Nausea & Vomiting 12/27/16 23:30 01/26/17 23:29 GI: Plan Problems: (1) Diabetes mellitus (2) Gastritis and duodenitis (3) Abdominal pain Plan CT AP reviewed, see full report. - mild enteritis changes - Equivocal wall thickening of the distal gastric antrum and proximal duodenum, more likely an artifact of under distention but arthritis/duodenitis or peptic also disease also a possibility - No acute process otherwise EGD/colonoscopy schedule tomorrow. - CLD & NPO @ [place]. - hold all blood thinners tonight monitor H&H, prn transfusions PPI electrolyte replacement fu labs, H. Pylori Discussed with Dr. Torres. Thank you for this patient referral, we will follow. JOSH TORRES 12/30/16 0919: History of Present Illness General Reason for Hospitalization: Abdominal Pain Present Illness Home Meds Reported Medications Dorzolamide Hcl* (TRUSOPT*) 10 Ml Drops, 1 DROP BOTH EYES BID, #1 ML 0 Refills 12/27/16 Ascorbic Acid* (VITAMIN C*) 500 Mg Tablet, 500 MG ORAL DAILY, #30 TAB 0 Refills 12/27/16 Calcium Carbonate (CALCIUM) 500 Mg Tablet, 500 MG PO, TAB 12/27/16 [place]-3 Fatty Acids (OMEGA-3) 1,000 Mg Capsule, 1000 MG PO, CAP 12/27/16 Benazepril Hcl* (BENAZEPRIL HCL*) 40 Mg Tablet, 40 MG ORAL DAILY, TAB 12/27/16 Aspirin Ec* (ASPIRIN EC*) 81 Mg Tablet.dr, 81 MG ORAL DAILY, TAB 12/27/16 Metformin Hcl* (METFORMIN HCL*) 1,000 Mg Tablet, 1000 MG ORAL BID, TAB 12/27/16 Amlodipine Besylate* (AMLODIPINE BESYLATE*) 5 Mg Tablet, 5 MG ORAL DAILY, TAB 12/27/16 Latanoprost* (XALATAN*) 2.5 Ml Drops, 1 DROP BOTH EYES BID, #2.5 ML 0 Refills 12/27/16 Allergies: Coded Allergies: No Known Allergies (Unverified , 12/27/16) GI: Plan Plan The patient was seen and examined at bedside and all new and available data was reviewed in the patients chart. I agree with the above findings, impression and plan. (Patient seen earlier today. Signature stamp does not reflect patient encounter time.). - MD Rebecca [facility]Cle[facility] Martinez NChad Dec 28, 2016 17:43 JOSH TORRES Dec 30, 2016 09:19
[2016-12-28 20:00] VITALS: BP 123/66
--- NOTE | 2016-12-28 22:02 | History and Physical Report ---
DATE OF ADMISSION: 12/27/2016 REASON FOR ADMISSION: Abdominal pain. HISTORY OF PRESENT ILLNESS: The patient does not speak [place]. History was obtained via the son. The patient comes in with right lower quadrant tenderness, which has been going on for couple of weeks. The patient apparently was in [facility] 2 weeks ago and was diagnosed with gallstones but no surgery was recommended at that time. The patient denies nausea, vomiting, diarrhea. Denies constipation. The pain has been going on for 2 weeks and it is intermittent, not associated with any other symptoms. The patient denies fever or chills. Denies cough. Denies heartburn. PAST MEDICAL HISTORY: Significant for hypertension, history of gallstones, glaucoma, NIDDM. PAST SURGICAL HISTORY: Bladder surgery, . MEDICATIONS: Vitamin C, aspirin, benazepril, calcium, Trusopt eyedrops, Xalatan eyedrops, metformin, [place]-3. ALLERGIES: No known allergies. SOCIAL HISTORY: The patient has remote history of smoking. No history of drug or alcohol abuse. Lives at home. FAMILY HISTORY: Does have history of hypertension and diabetes. REVIEW OF SYSTEMS: HEENT: Denies headaches. RESPIRATORY: Denies shortness of breath. Denies cough. CARDIOVASCULAR: Denies chest pain or orthopnea. GASTROINTESTINAL: Reports right lower quadrant tenderness, intermittent for the past 2 weeks, not associated with any nausea, constipation, or vomiting. EXTREMITIES: Denies pain in lower extremity. CENTRAL NERVOUS SYSTEM: No change in vision or speech pattern. Feels weak. PHYSICAL EXAMINATION: VITAL SIGNS: Temperature is 96.8, pulse is 89, blood pressure 134/60. HEENT: PERRLA. NECK: Supple. No lymphadenopathy. CHEST: Clear to auscultation. GASTROINTESTINAL: Tender in the right lower quadrant. No rebound. Abdomen is soft. No organomegaly. EXTREMITIES: No edema. NEUROLOGIC: Reflexes equal on both sides. Moves all 4 extremities. Sensation intact to light touch. LABORATORY DATA: WBC of 9.9, hemoglobin 12.9, platelet of 335. Sodium 133, potassium 3.1, BUN of 11, creatinine 0.8. Calcium of 10.4. ASSESSMENT AND PLAN: 1. Abdominal pain. 2. History of gallstones. 3. Hypokalemia. 4. Hyponatremia. I have asked Dr. Ward, Dr. Acevedo, Dr. Antoine, Dr. Lemon to see the patient and to see if the patient needs surgery for gallstones or not and antibiotics per Dr. Acevedo. And abdominal pain workup will also be worked up partly by Dr. Antoine, and Dr. Ward is consulted for the hypokalemia and hyponatremia. Eben Guerrero M.D. DR: SHANIKA JOB#: [id number] CC:
[2016-12-29] VITALS (8 sets, daily range): BP systolic 111–152; BP diastolic 47–71
--- NOTE | 2016-12-29 00:46 | Consultation ---
DATE OF CONSULTATION: INFECTIOUS DISEASES CONSULTATION REQUESTING PHYSICIAN: Eben Guerrero M.D. REASON FOR CONSULTATION: Abdominal pain, duodenitis, rule out infectious etiology. HISTORY OF PRESENT ILLNESS: The patient is an 81-year-old female with past medical history of diabetes and anxiety presented to [facility] with chief complaint of right mid abdominal pain, which is 8/10. She describes it as a sharp, deep dull ache, localized in the right mid abdomen and lower abdomen, also started for several days. The patient denies any diarrhea or constipation. No fever or chills. Denied any nausea or vomiting but she has poor oral intake. No dysuria, hematuria, or discharge. No cough or shortness of breath. No fever or chills. The patient had a CT scan of the abdomen and pelvis in the emergency room which showed evidence of duodenitis so I was consulted by the primary provider for antibiotics choice and to rule out infectious etiology. REVIEW OF SYSTEMS: A 12-point of system reviewed were all negative apart from the one I mentioned above in my H and P. PAST MEDICAL HISTORY: Significant for diabetes, hypertension, and anxiety. PAST SURGICAL HISTORY: Negative. MEDICATIONS: The patient received morphine, dicyclomine, Mylanta, Zofran, and Pepcid in the emergency room. For the rest of her medications, please refer to MAR. ALLERGIES: No known drug allergy. FAMILY HISTORY: Noncontributory. SOCIAL HISTORY: The patient lives with family. Denied using any drugs, tobacco, or alcohol. LABORATORY DATA: White count of 9.9, hemoglobin of 12.9, and platelet count of 335,000. BUN of 11 and creatinine of 0.8. AST of 15 and ALT of 14. Urinalysis negative for infection. Imaging, chest x-ray, no acute process. INCOMPLETE DICTATION Salas Acevedo M.D. DR: Abena JOB#: [id number] CC:
[2016-12-29 07:45] LABS: BASOPHILS % (AUTO) 0.6 % (0.0-2.0); EOSINOPHILS % (AUTO) 2.3 % (0.0-3.0); LYMPHOCYTES % (AUTO) 31.5 % (20.0-45.0); MEAN CORPUSCULAR HEMOGLOBIN 30.1 PG (27.0-31.0); MEAN CORPUSCULAR HGB CONC 32.8 G/DL (32.0-36.0); MEAN CORPUSCULAR VOLUME 92 FL (80-99); MEAN PLATELET VOLUME 6.1 FL (6.5-10.1); MONOCYTES % (AUTO) 7.6 % (1.0-10.0); PLATELET COUNT 297 K/UL (150-450); RED CELL DISTRIBUTION WIDTH 11.4 % (11.6-14.8); WHITE BLOOD COUNT 6.3 K/UL (4.8-10.8)
[2016-12-29 07:59] LABS: ALANINE AMINOTRANSFERASE 12 U/L (12-78); ALBUMIN/GLOBULIN RATIO 0.9 (1.0-2.7); ANION GAP 7 (5-15); ASPARTATE AMINO TRANSFERASE 14 U/L (15-37); CALCIUM 8.9 MG/DL (8.5-10.1); CARBON DIOXIDE 24 MMOL/L (21-32); CHLORIDE 103 MMOL/L (98-107); CHOLESTEROL 138 MG/DL (< 200); CHOLESTEROL/HDL RATIO 2.8 (3.3-4.4); CREATININE 0.6 MG/DL (0.55-1.30); MAGNESIUM 1.6 MG/DL (1.8-2.4); PHOSPHORUS 3.1 MG/DL (2.5-4.9); POTASSIUM 3.7 MMOL/L (3.5-5.1); SODIUM 134 MMOL/L (136-145); TOTAL PROTEIN 6.5 G/DL (6.4-8.2); URIC ACID 3.6 MG/DL (2.6-7.2)
[2016-12-29 08:01] LABS: CRP QUANT < 0.4 mg/dL (0.00-0.90)
[2016-12-29 08:06] LABS: PROTHROMBIN TIME 10.7 SEC (9.30-11.50)
[2016-12-29] MEDS: D5NS 1,000 ML IV SCH (08:54)
[2016-12-29] MEDS: Tums 500mg ORAL SCH (08:55)
[2016-12-29] MEDS: Dorzolamide 2% Btl BOTH EYES SCH ×2 (09:00→17:11)
[2016-12-29] MEDS: Aspirin Baby 81mg ORAL SCH (09:00)
[2016-12-29] MEDS ORDERED: NS 550ML IV ONE (12:25)
[2016-12-29] MEDS ORDERED: Lidocaine 1% MPF 10mg/ml 5ml ONE (12:30)
[2016-12-29] MEDS ORDERED: Propofol 200mg/20ml IV ONE (12:30)
--- NOTE | 2016-12-29 12:39 | Pre-Procedure Note/Attestation ---
Pre-Procedure Note/Attestation Complete Prior to Procedure Planned Procedure: not applicable Procedure Narrative: esophagogastroduodenoscopy and colonoscopy Indications for Procedure Pre-Operative Diagnosis: anemia Attestation I attest that I discussed the nature of the procedure; its benefits; risks and complications; and alternatives (and the risks and benefits of such alternatives ), prior to the procedure, with the patient (or the patient's legal customer contact representative). I attest that, if there was a reasonable possibility of needing a blood transfusion, the patient (or the patient's legal customer contact representative) was given the [facility] standardized written summary, pursuant to the Byron Loni Blood Safety Act ([place] Health and Safety Code # 1645, as amended). I attest that I re-evaluated the patient just prior to the surgery and that there has been no change in the patient's H&P, except as documented below: JOSH TORRES Dec 29, 2016 12:39
--- NOTE | 2016-12-29 12:52 | General Progress Note ---
Progress Note Progress Note Surgery: down in GI suite for procedure. will await EGD and colonoscopy results Phuc Lemon Dec 29, 2016 12:52
--- NOTE | 2016-12-29 13:22 | Anethesia Preoperative Eval ---
Anesthesia Pre-op PMH/ROS General Date of Evaluation: Dec 29, 2016 Time of Evaluation: 11:00 Anesthesiologist: nigel ASA Score: ASA 3 Mallampati Score Class I : Soft palate, uvula, fauces, pillars visible Class II: Soft palate, uvula, fauces visible Class III: Soft palate, base of uvula visible Class IV: Only hard plate visible Mallampati Classification: Class II Surgeon: eder Diagnosis: abdominal pain Surgical Procedure: egd/colonoscopy Anesthesia History: none - e Family History: no anesthesia problems Allergies: Coded Allergies: No Known Allergies (Unverified , 12/27/16) Medications: see eMAR Past Medical History Cardiovascular: Reports: HTN Neurologic/Psychiatric: Reports: other - parkinson's disease Endocrine: Reports: DM Anesthesia Pre-op Phys. Exam Physician Exam Last Vital Signs Date Time Temp Pulse Resp B/P (MAP) Pulse Ox O2 Delivery O2 Flow Rate FiO2 12/29/16 13:15 97.2 69 16 111/47 100 Nasal Cannula 3.0 Constitutional: NAD Neurologic: CN 2-12 intact Cardiovascular: RRR Respiratory: CTA Gastrointestinal: S/NT/ND Airway Exam Mallampati Score: Class II MO: full Neck: supple TMD: 2fb ROM: limited Anesthesia Pre-op A/P Labs Hematology Test 12/29/16 05:40 White Blood Count 6.3 K/UL (4.8-10.8) Red Blood Count 3.70 M/UL (4.20-5.40) L Hemoglobin 11.2 G/DL (12.0-16.0) L Hematocrit 34.0 % (37.0-47.0) L Mean Corpuscular Volume 92 FL (80-99) Mean Corpuscular Hemoglobin 30.1 PG (27.0-31.0) Mean Corpuscular Hemoglobin Concent 32.8 G/DL (32.0-36.0) Red Cell Distribution Width 11.4 % (11.6-14.8) L Platelet Count 297 K/UL (150-450) Mean Platelet Volume 6.1 FL (6.5-10.1) L Neutrophils (%) (Auto) 58.0 % (45.0-75.0) Lymphocytes (%) (Auto) 31.5 % (20.0-45.0) Monocytes (%) (Auto) 7.6 % (1.0-10.0) Eosinophils (%) (Auto) 2.3 % (0.0-3.0) Basophils (%) (Auto) 0.6 % (0.0-2.0) Coagulation Test 12/29/16 05:40 Prothrombin Time 10.7 SEC (9.30-11.50) Prothromb Time International Ratio 1.0 (0.9-1.1) Activated Partial Thromboplast Time 31 SEC (23-33) Chemistry Test 12/29/16 05:40 Sodium Level 134 MMOL/L (136-145) L Potassium Level 3.7 MMOL/L (3.5-5.1) Chloride Level 103 MMOL/L (98-107) Carbon Dioxide Level 24 MMOL/L (21-32) Anion Gap 7 (5-15) Blood Urea Nitrogen 6 mg/dL (7-18) L Creatinine 0.6 MG/DL (0.55-1.30) Estimat Glomerular Filtration Rate mL/min (>60) Glucose Level 142 MG/DL (74-106) H Hemoglobin A1c 8.0 % (4.5-6.5) H Uric Acid 3.6 MG/DL (2.6-7.2) Calcium Level 8.9 MG/DL (8.5-10.1) Phosphorus Level 3.1 MG/DL (2.5-4.9) Magnesium Level 1.6 MG/DL (1.8-2.4) L Total Bilirubin 0.5 MG/DL (0.2-1.0) Gamma Glutamyl Transpeptidase 10 U/L (5-85) Aspartate Amino Transf (AST/SGOT) 14 U/L (15-37) L Alanine Aminotransferase (ALT/SGPT) 12 U/L (12-78) Alkaline Phosphatase 56 U/L (46-116) Total Creatine Kinase 32 U/L (26-308) C-Reactive Protein, Quantitative < 0.4 mg/dL (0.00-0.90) Pro-B-Type Natriuretic Peptide 56 (0-125) Total Protein 6.5 G/DL (6.4-8.2) Albumin 3.0 G/DL (3.4-5.0) L Globulin 3.5 g/dL Albumin/Globulin Ratio 0.9 (1.0-2.7) L Triglycerides Level 133 MG/DL (0-200) Cholesterol Level 138 MG/DL (< 200) LDL Cholesterol 80 mg/dL (<100) HDL Cholesterol 49 MG/DL (40-60) Cholesterol/HDL Ratio 2.8 (3.3-4.4) L Vitamin B12 Level 232 PG/ML (193-986) Folate Pending Thyroid Stimulating Hormone (TSH) 0.440 uiU/mL (0.360-3.740) Risk Assessment & Plan Assessment: asa3 Plan: mac Status Change Before Surgery: No Pre-Antibiotics Drug: RENUKA Herrera Dec 29, 2016 13:22
[2016-12-29] MEDS ORDERED: fentaNYL 100 mcg/2 mL IV PRN (13:30)
[2016-12-29] MEDS ORDERED: Midazolam 2mg/2ml Inj IVP PRN (13:30)
[2016-12-29] MEDS ORDERED: Atropine Inj 1mg/10ml Syr IV PRN (13:30)
[2016-12-29] MEDS ORDERED: DiphenhydrAMINE 50mg/ml Inj IVP PRN (13:30)
--- NOTE | 2016-12-29 13:34 | Immediate Post-Op Evaluation ---
Immediate Post-Op Evalulation Immediate Post-Op Evalulation Procedure: egd/colonoscopy Date of Evaluation: Dec 29, 2016 Time of Evaluation: 13:32 IV Fluids: 175 0.9ns Blood Products: none Estimated Blood Loss: negligible Blood Pressure Systolic: 120 Blood Pressure Diastolic: 48 Pulse Rate: 67 Respiratory Rate: 18 O2 Sat by Pulse Oximetry: 100 Temperature (Fahrenheit): 97.2 Pain Score (1-10): 0 Nausea: No Vomiting: No Complications none Patient Status: awake, reacts, patent Hydration Status: adequate Drug: RENUKA Herrera Dec 29, 2016 13:34
--- NOTE | 2016-12-29 13:36 | 48 Hour Post Anesthesia Eval ---
Post Anesthesia Evaluation Procedure: egd/colonoscopy Date of Evaluation: Dec 29, 2016 Time of Evaluation: 13:35 Blood Pressure Systolic: 123 0: 49 Pulse Rate: 68 Respiratory Rate: 18 Temperature (Fahrenheit): 97.2 O2 Sat by Pulse Oximetry: 100 Airway: patent Nausea: No Vomiting: No Pain Intensity: 0 Hydration Status: adequate Cardiopulmonary Status: stable Mental Status/LOC: patient returned to baseline Post-Anesthesia Complications: none Follow-up care needed: N/A RENUKA RAMSEY Dec 29, 2016 13:36
--- NOTE | 2016-12-29 13:49 | General Progress Note ---
Assessment/Plan Status: stable Assessment/Plan HTN DM Abd Pain Low Na low Mg adjust BP meds- mag and Na supplement Subjective ROS Limited/Unobtainable: No Allergies: Coded Allergies: No Known Allergies (Unverified , 12/27/16) Objective Last 24 Hour Vital Signs Date Time Temp Pulse Resp B/P (MAP) Pulse Ox O2 Delivery O2 Flow Rate FiO2 12/29/16 13:36 68 18 100 12/29/16 13:35 97.6 66 19 122/49 100 Nasal Cannula 3.0 12/29/16 13:34 67 18 100 12/29/16 13:25 69 19 130/48 100 Nasal Cannula 3.0 12/29/16 13:20 67 16 120/48 100 Nasal Cannula 3.0 12/29/16 13:15 97.2 69 16 111/47 100 Nasal Cannula 3.0 12/29/16 08:55 138/71 12/29/16 08:54 86 138/71 12/29/16 08:00 97.0 77 18 136/63 99 Room Air 12/29/16 04:00 97.1 86 18 138/71 99 Room Air 12/29/16 00:00 96.6 83 18 152/66 100 Room Air 12/28/16 20:00 97.2 81 18 123/66 99 Room Air 12/28/16 16:00 97.7 70 18 146/70 99 Room Air Intake and Output 12/29/16 12/30/16 19:00 07:00 Intake Total 275 ml Balance 275 ml Intake IV Total 275 ml Laboratory Tests 12/29/16 05:40: White Blood Count 6.3, Red Blood Count 3.70L, Hemoglobin 11.2L, Hematocrit 34.0L , Mean Corpuscular Volume 92, Mean Corpuscular Hemoglobin 30.1, Mean Corpuscular Hemoglobin Concent 32.8, Red Cell Distribution Width 11.4L, Platelet Count 297, Mean Platelet Volume 6.1L, Neutrophils (%) (Auto) 58.0, Lymphocytes (%) (Auto) 31.5, Monocytes (%) (Auto) 7.6, Eosinophils (%) (Auto) 2.3, Basophils (%) (Auto) 0.6, Prothrombin Time 10.7, Prothromb Time International Ratio 1.0, Activated Partial Thromboplast Time 31, Sodium Level 134L, Potassium Level 3.7, Chloride Level 103, Carbon Dioxide Level 24, Anion Gap 7, Blood Urea Nitrogen 6L, Creatinine 0.6, Estimat Glomerular Filtration Rate , Glucose Level 142H, Hemoglobin A1c 8.0H, Uric Acid 3.6, Calcium Level 8.9 , Phosphorus Level 3.1, Magnesium Level 1.6L, Total Bilirubin 0.5, Gamma Glutamyl Transpeptidase 10, Aspartate Amino Transf (AST/SGOT) 14L, Alanine Aminotransferase (ALT/SGPT) 12, Alkaline Phosphatase 56, Total Creatine Kinase 32, C-Reactive Protein, Quantitative < 0.4, Pro-B-Type Natriuretic Peptide 56, Total Protein 6.5, Albumin 3.0L, Globulin 3.5, Albumin/Globulin Ratio 0.9L, Triglycerides Level 133, Cholesterol Level 138, LDL Cholesterol 80, HDL Cholesterol 49, Cholesterol/HDL Ratio 2.8L, Vitamin B12 Level 232, Folate [ Pending], Thyroid Stimulating Hormone (TSH) 0.440 Height (Feet): 5 Height (Inches): 5.00 Weight (Pounds): 140 General Appearance: no apparent distress Objective PE not changed JOEL HERNANDEZ Dec 29, 2016 13:49
--- NOTE | 2016-12-29 16:18 | Infectious Diseases Prog Note ---
Assessment/Plan Problems: (1) Gastritis and duodenitis Assessment & Plan: S/P EGD, and Colonoscopy , with findings of polyps, S/P biopsies, rule out H.pylori, serology tests are pending . (2) Abdominal pain Assessment & Plan: due to the above, continue antiacid and pain management as per GI (3) Diabetes mellitus Assessment & Plan: recommend tight glycemic control to keep blood glucose between 80-130 premeals Subjective Constitutional: Reports: no symptoms HEENT: Reports: no symptoms Respiratory: Reports: no symptoms Breasts: Reports: no symptoms Cardiovascular: Reports: no symptoms Gastrointestinal/Abdominal: Reports: bloating Genitourinary: Reports: no symptoms Neurologic: Reports: no symptoms Psychiatric: Reports: no symptoms Skin: Reports: no symptoms Endocrine: Reports: no symptoms Hematologic: Reports: no symptoms Musculoskeletal: Reports: no symptoms Allergies: Coded Allergies: No Known Allergies (Unverified , 12/27/16) Objective Vital Signs Last 24 Hour Vital Signs Date Time Temp Pulse Resp B/P (MAP) Pulse Ox O2 Delivery O2 Flow Rate FiO2 12/29/16 15:46 97.7 80 19 144/57 99 Room Air 12/29/16 13:36 68 18 100 12/29/16 13:35 97.6 66 19 122/49 100 Nasal Cannula 3.0 12/29/16 13:34 67 18 100 12/29/16 13:25 69 19 130/48 100 Nasal Cannula 3.0 12/29/16 13:20 67 16 120/48 100 Nasal Cannula 3.0 12/29/16 13:15 97.2 69 16 111/47 100 Nasal Cannula 3.0 12/29/16 08:55 138/71 12/29/16 08:54 86 138/71 12/29/16 08:00 97.0 77 18 136/63 99 Room Air 12/29/16 04:00 97.1 86 18 138/71 99 Room Air 12/29/16 00:00 96.6 83 18 152/66 100 Room Air 12/28/16 20:00 97.2 81 18 123/66 99 Room Air Height (Feet): 5 Height (Inches): 5.00 Weight (Pounds): 140 General Appearance: WD/WN, no acute distress HEENT: normocephalic, atraumatic, anicteric, mucous membranes moist, EOMI, pharynx normal, supple, no JVD Respiratory/Chest: chest wall non-tender, lungs clear, normal breath sounds, no respiratory distress, no accessory muscle use Cardiovascular: normal peripheral pulses, normal rate, regular rhythm, no gallop/murmur, no JVD Abdomen: normal bowel sounds, no organomegaly, no mass, no scars, distended, tender Extremities: no cyanosis, no clubbing Skin: no rash, no lesions, no ulcers Neurologic/Psychiatric: alert, oriented x 3 Laboratory Tests Test 12/29/16 05:40 White Blood Count 6.3 K/UL (4.8-10.8) Red Blood Count 3.70 M/UL (4.20-5.40) L Hemoglobin 11.2 G/DL (12.0-16.0) L Hematocrit 34.0 % (37.0-47.0) L Mean Corpuscular Volume 92 FL (80-99) Mean Corpuscular Hemoglobin 30.1 PG (27.0-31.0) Mean Corpuscular Hemoglobin Concent 32.8 G/DL (32.0-36.0) Red Cell Distribution Width 11.4 % (11.6-14.8) L Platelet Count 297 K/UL (150-450) Mean Platelet Volume 6.1 FL (6.5-10.1) L Neutrophils (%) (Auto) 58.0 % (45.0-75.0) Lymphocytes (%) (Auto) 31.5 % (20.0-45.0) Monocytes (%) (Auto) 7.6 % (1.0-10.0) Eosinophils (%) (Auto) 2.3 % (0.0-3.0) Basophils (%) (Auto) 0.6 % (0.0-2.0) Prothrombin Time 10.7 SEC (9.30-11.50) Prothromb Time International Ratio 1.0 (0.9-1.1) Activated Partial Thromboplast Time 31 SEC (23-33) Sodium Level 134 MMOL/L (136-145) L Potassium Level 3.7 MMOL/L (3.5-5.1) Chloride Level 103 MMOL/L (98-107) Carbon Dioxide Level 24 MMOL/L (21-32) Anion Gap 7 (5-15) Blood Urea Nitrogen 6 mg/dL (7-18) L Creatinine 0.6 MG/DL (0.55-1.30) Estimat Glomerular Filtration Rate mL/min (>60) Glucose Level 142 MG/DL (74-106) H Hemoglobin A1c 8.0 % (4.5-6.5) H Uric Acid 3.6 MG/DL (2.6-7.2) Calcium Level 8.9 MG/DL (8.5-10.1) Phosphorus Level 3.1 MG/DL (2.5-4.9) Magnesium Level 1.6 MG/DL (1.8-2.4) L Total Bilirubin 0.5 MG/DL (0.2-1.0) Gamma Glutamyl Transpeptidase 10 U/L (5-85) Aspartate Amino Transf (AST/SGOT) 14 U/L (15-37) L Alanine Aminotransferase (ALT/SGPT) 12 U/L (12-78) Alkaline Phosphatase 56 U/L (46-116) Total Creatine Kinase 32 U/L (26-308) C-Reactive Protein, Quantitative < 0.4 mg/dL (0.00-0.90) Pro-B-Type Natriuretic Peptide 56 (0-125) Total Protein 6.5 G/DL (6.4-8.2) Albumin 3.0 G/DL (3.4-5.0) L Globulin 3.5 g/dL Albumin/Globulin Ratio 0.9 (1.0-2.7) L Triglycerides Level 133 MG/DL (0-200) Cholesterol Level 138 MG/DL (< 200) LDL Cholesterol 80 mg/dL (<100) HDL Cholesterol 49 MG/DL (40-60) Cholesterol/HDL Ratio 2.8 (3.3-4.4) L Vitamin B12 Level 232 PG/ML (193-986) Folate Pending Thyroid Stimulating Hormone (TSH) 0.440 uiU/mL (0.360-3.740) Current Medications Medications (Trade) Dose Ordered Sig/Clem Route PRN Reason Start Time Stop Time Status Last Admin Dose Admin Acetaminophen (Tylenol) 650 mg Q4H PRN ORAL Mild Pain/Temp > 100.5 12/27/16 23:30 01/26/17 23:29 Amlodipine Besylate (Norvasc) 5 mg DAILY ORAL 12/28/16 09:00 01/27/17 08:59 12/29/16 08:54 Aspirin (ASA) 81 mg DAILY ORAL 12/28/16 09:00 01/27/17 08:59 12/28/16 09:35 Atropine Sulfate (Atropine) 0.5 mg Q5M PRN IV bpm less than 45 12/29/16 13:30 12/29/16 17:00 Benazepril HCl (Lotensin) 40 mg DAILY ORAL 12/28/16 09:00 01/27/17 08:59 12/29/16 08:55 Dextrose (Dextrose 50%) STAT PRN IV Hypoglycemia 12/29/16 16:00 01/28/17 15:59 Dextrose (Dextrose 50%) 50 ml AC+HS PRN IV Hypoglycemia 12/27/16 23:30 01/26/17 23:29 Dextrose/Sodium Chloride 1,000 ml @ 50 mls/hr Q20H IV 12/27/16 21:30 01/26/17 21:29 12/29/16 08:54 Diphenhydramine HCl (Benadryl) 25 mg Q15M PRN IVP Itching 12/29/16 13:30 12/29/16 17:00 Dorzolamide HCl (Trusopt) 1 drop BID BOTH EYES 12/28/16 09:00 01/27/17 08:59 Fentanyl Citrate (Sublimaze 100 mcg/2 mL) 25 mcg Q10M PRN IV Moderate Pain (Pain Scale 4-6) 12/29/16 13:30 12/29/16 17:00 Insulin Aspart (NovoLOG) BEFORE MEALS AND HS SUBQ 12/29/16 16:30 01/28/17 16:29 Latanoprost (Xalatan) 1 drop BID BOTH EYES 12/28/16 09:00 01/27/17 08:59 Midazolam HCl (Versed 2mg/2ml vial) 1 mg Q15M PRN IVP For Anxiety 12/29/16 13:30 12/29/16 17:00 Morphine Sulfate (Morphine Sulfate) 2 mg Q4H PRN IVP For Pain 12/27/16 23:30 01/03/17 23:29 Ondansetron HCl (Zofran) 4 mg Q1H PRN IVP Nausea & Vomiting 12/29/16 13:30 12/29/16 17:00 Ondansetron HCl (Zofran) 4 mg Q6H PRN IVP Nausea & Vomiting 12/27/16 23:30 01/26/17 23:29 Pantoprazole (Protonix) 40 mg DAILY ORAL 12/30/16 09:00 01/29/17 08:59 Quetiapine Fumarate (SEROquel) 12.5 mg BEDTIME PRN ORAL Agitation 12/29/16 16:15 01/28/17 16:14 Salas Lares M.D. Dec 29, 2016 16:18
[2016-12-29] MEDS: NovoLOG Insulin Flexpen SUBQ SCH ×2 (17:11→21:00)
--- NOTE | 2016-12-29 20:14 | General Progress Note ---
Assessment/Plan Problem List: (1) Gastritis and duodenitis ICD Codes: K29.90 - Gastroduodenitis, unspecified, without bleeding SNOMED: 532619855 (2) Abdominal pain ICD Codes: R10.9 - Unspecified abdominal pain SNOMED: 18114605 (3) Diabetes mellitus ICD Codes: E11.9 - Type 2 diabetes mellitus without complications SNOMED: 17691609 Status: progressing Assessment/Plan afebrile vitals stable abdominal pain s/p endoscopy moniter for gi bleeding dc in am Subjective ROS Limited/Unobtainable: Yes Allergies: Coded Allergies: No Known Allergies (Unverified , 12/27/16) Objective Last 24 Hour Vital Signs Date Time Temp Pulse Resp B/P (MAP) Pulse Ox O2 Delivery O2 Flow Rate FiO2 12/29/16 15:46 97.7 80 19 144/57 99 Room Air 12/29/16 13:36 68 18 100 12/29/16 13:35 97.6 66 19 122/49 100 Nasal Cannula 3.0 12/29/16 13:34 67 18 100 12/29/16 13:25 69 19 130/48 100 Nasal Cannula 3.0 12/29/16 13:20 67 16 120/48 100 Nasal Cannula 3.0 12/29/16 13:15 97.2 69 16 111/47 100 Nasal Cannula 3.0 12/29/16 08:55 138/71 12/29/16 08:54 86 138/71 12/29/16 08:00 97.0 77 18 136/63 99 Room Air 12/29/16 04:00 97.1 86 18 138/71 99 Room Air 12/29/16 00:00 96.6 83 18 152/66 100 Room Air Intake and Output 12/29/16 12/30/16 19:00 07:00 Intake Total 475 ml Balance 475 ml Intake IV Total 475 ml Laboratory Tests 12/29/16 05:40: White Blood Count 6.3, Red Blood Count 3.70L, Hemoglobin 11.2L, Hematocrit 34.0L , Mean Corpuscular Volume 92, Mean Corpuscular Hemoglobin 30.1, Mean Corpuscular Hemoglobin Concent 32.8, Red Cell Distribution Width 11.4L, Platelet Count 297, Mean Platelet Volume 6.1L, Neutrophils (%) (Auto) 58.0, Lymphocytes (%) (Auto) 31.5, Monocytes (%) (Auto) 7.6, Eosinophils (%) (Auto) 2.3, Basophils (%) (Auto) 0.6, Prothrombin Time 10.7, Prothromb Time International Ratio 1.0, Activated Partial Thromboplast Time 31, Sodium Level 134L, Potassium Level 3.7, Chloride Level 103, Carbon Dioxide Level 24, Anion Gap 7, Blood Urea Nitrogen 6L, Creatinine 0.6, Estimat Glomerular Filtration Rate , Glucose Level 142H, Hemoglobin A1c 8.0H, Uric Acid 3.6, Calcium Level 8.9 , Phosphorus Level 3.1, Magnesium Level 1.6L, Total Bilirubin 0.5, Gamma Glutamyl Transpeptidase 10, Aspartate Amino Transf (AST/SGOT) 14L, Alanine Aminotransferase (ALT/SGPT) 12, Alkaline Phosphatase 56, Total Creatine Kinase 32, C-Reactive Protein, Quantitative < 0.4, Pro-B-Type Natriuretic Peptide 56, Total Protein 6.5, Albumin 3.0L, Globulin 3.5, Albumin/Globulin Ratio 0.9L, Triglycerides Level 133, Cholesterol Level 138, LDL Cholesterol 80, HDL Cholesterol 49, Cholesterol/HDL Ratio 2.8L, Vitamin B12 Level 232, Folate [ Pending], Thyroid Stimulating Hormone (TSH) 0.440 Height (Feet): 5 Height (Inches): 5.00 Weight (Pounds): 140 Neck: supple Cardiovascular: normal rate Respiratory/Chest: lungs clear Abdomen: soft Eben Guerrero MD Dec 29, 2016 20:14
[2016-12-30] VITALS: BP 146/59
--- NOTE | 2016-12-30 00:04 | Consultation ---
History of Present Illness General Chief Complaint: Abdominal Pain Referring physician: THELMA PATTEN Reason for Consultation: ABDOMINAL PAIN Present Illness HPI 81-year-old female with past medical history of diabetes and anxiety presented to [facility] with chief complaint of right mid abdominal pain. the pt endorses anxiety most of the day and she somatizes her symptoms Allergies: Coded Allergies: No Known Allergies (Unverified , 12/27/16) Medication History Scheduled Amlodipine Besylate* (Amlodipine Besylate*), 5 MG ORAL DAILY, (Reported) Ascorbic Acid* (Vitamin C*), 500 MG ORAL DAILY, (Reported) Aspirin Ec* (Aspirin Ec*), 81 MG ORAL DAILY, (Reported) Benazepril Hcl* (Benazepril Hcl*), 40 MG ORAL DAILY, (Reported) Dorzolamide Hcl* (Trusopt*), 1 DROP BOTH EYES BID, (Reported) Latanoprost* (Xalatan*), 1 DROP BOTH EYES BID, (Reported) Metformin Hcl* (Metformin Hcl*), 1,000 MG ORAL BID, (Reported) Miscellaneous Medications Calcium Carbonate (Calcium), 500 MG PO, (Reported) [place]-3 Fatty Acids ([place]-3), 1,000 MG PO, (Reported) Patient History History Provided By: Patient, Medical Record, PMD Healthcare decision maker Resuscitation status Full Code Advanced Directive on File Past Medical/Surgical History Past Medical/Surgical History: (1) Gastritis and duodenitis (2) Abdominal pain (3) Diabetes mellitus Review of Systems Constitutional: Reports: malaise, weakness Psychiatric: Reports: prior hx, anxiety, depressed feelings, emotional problems Physical Exam General Appearance: no apparent distress, alert Neurologic: alert, oriented x 3, responsive, depressed affect Last 24 Hour Vital Signs Date Time Temp Pulse Resp B/P (MAP) Pulse Ox O2 Delivery O2 Flow Rate FiO2 12/29/16 15:46 97.7 80 19 144/57 99 Room Air 12/29/16 13:36 68 18 100 12/29/16 13:35 97.6 66 19 122/49 100 Nasal Cannula 3.0 12/29/16 13:34 67 18 100 12/29/16 13:25 69 19 130/48 100 Nasal Cannula 3.0 12/29/16 13:20 67 16 120/48 100 Nasal Cannula 3.0 12/29/16 13:15 97.2 69 16 111/47 100 Nasal Cannula 3.0 12/29/16 08:55 138/71 12/29/16 08:54 86 138/71 12/29/16 08:00 97.0 77 18 136/63 99 Room Air 12/29/16 04:00 97.1 86 18 138/71 99 Room Air Laboratory Tests Test 12/29/16 05:40 White Blood Count 6.3 K/UL (4.8-10.8) Red Blood Count 3.70 M/UL (4.20-5.40) L Hemoglobin 11.2 G/DL (12.0-16.0) L Hematocrit 34.0 % (37.0-47.0) L Mean Corpuscular Volume 92 FL (80-99) Mean Corpuscular Hemoglobin 30.1 PG (27.0-31.0) Mean Corpuscular Hemoglobin Concent 32.8 G/DL (32.0-36.0) Red Cell Distribution Width 11.4 % (11.6-14.8) L Platelet Count 297 K/UL (150-450) Mean Platelet Volume 6.1 FL (6.5-10.1) L Neutrophils (%) (Auto) 58.0 % (45.0-75.0) Lymphocytes (%) (Auto) 31.5 % (20.0-45.0) Monocytes (%) (Auto) 7.6 % (1.0-10.0) Eosinophils (%) (Auto) 2.3 % (0.0-3.0) Basophils (%) (Auto) 0.6 % (0.0-2.0) Prothrombin Time 10.7 SEC (9.30-11.50) Prothromb Time International Ratio 1.0 (0.9-1.1) Activated Partial Thromboplast Time 31 SEC (23-33) Sodium Level 134 MMOL/L (136-145) L Potassium Level 3.7 MMOL/L (3.5-5.1) Chloride Level 103 MMOL/L (98-107) Carbon Dioxide Level 24 MMOL/L (21-32) Anion Gap 7 (5-15) Blood Urea Nitrogen 6 mg/dL (7-18) L Creatinine 0.6 MG/DL (0.55-1.30) Estimat Glomerular Filtration Rate mL/min (>60) Glucose Level 142 MG/DL (74-106) H Hemoglobin A1c 8.0 % (4.5-6.5) H Uric Acid 3.6 MG/DL (2.6-7.2) Calcium Level 8.9 MG/DL (8.5-10.1) Phosphorus Level 3.1 MG/DL (2.5-4.9) Magnesium Level 1.6 MG/DL (1.8-2.4) L Total Bilirubin 0.5 MG/DL (0.2-1.0) Gamma Glutamyl Transpeptidase 10 U/L (5-85) Aspartate Amino Transf (AST/SGOT) 14 U/L (15-37) L Alanine Aminotransferase (ALT/SGPT) 12 U/L (12-78) Alkaline Phosphatase 56 U/L (46-116) Total Creatine Kinase 32 U/L (26-308) C-Reactive Protein, Quantitative < 0.4 mg/dL (0.00-0.90) Pro-B-Type Natriuretic Peptide 56 (0-125) Total Protein 6.5 G/DL (6.4-8.2) Albumin 3.0 G/DL (3.4-5.0) L Globulin 3.5 g/dL Albumin/Globulin Ratio 0.9 (1.0-2.7) L Triglycerides Level 133 MG/DL (0-200) Cholesterol Level 138 MG/DL (< 200) LDL Cholesterol 80 mg/dL (<100) HDL Cholesterol 49 MG/DL (40-60) Cholesterol/HDL Ratio 2.8 (3.3-4.4) L Vitamin B12 Level 232 PG/ML (193-986) Folate Pending Thyroid Stimulating Hormone (TSH) 0.440 uiU/mL (0.360-3.740) Height (Feet): 5 Height (Inches): 5.00 Weight (Pounds): 140 Medications Current Medications Medications (Trade) Dose Ordered Sig/Clem Route PRN Reason Start Time Stop Time Status Last Admin Dose Admin Acetaminophen (Tylenol) 650 mg Q4H PRN ORAL Mild Pain/Temp > 100.5 12/27/16 23:30 01/26/17 23:29 Amlodipine Besylate (Norvasc) 5 mg DAILY ORAL 12/28/16 09:00 01/27/17 08:59 12/29/16 08:54 Aspirin (ASA) 81 mg DAILY ORAL 12/28/16 09:00 01/27/17 08:59 12/28/16 09:35 Benazepril HCl (Lotensin) 40 mg DAILY ORAL 12/28/16 09:00 01/27/17 08:59 12/29/16 08:55 Dextrose (Dextrose 50%) STAT PRN IV Hypoglycemia 12/29/16 16:00 01/28/17 15:59 Dextrose (Dextrose 50%) 50 ml AC+HS PRN IV Hypoglycemia 12/27/16 23:30 01/26/17 23:29 Dextrose/Sodium Chloride 1,000 ml @ 50 mls/hr Q20H IV 12/27/16 21:30 01/26/17 21:29 12/29/16 08:54 Dorzolamide HCl (Trusopt) 1 drop BID BOTH EYES 12/28/16 09:00 01/27/17 08:59 Insulin Aspart (NovoLOG) BEFORE MEALS AND HS SUBQ 12/29/16 16:30 01/28/17 16:29 12/29/16 17:11 Latanoprost (Xalatan) 1 drop BID BOTH EYES 12/28/16 09:00 01/27/17 08:59 Morphine Sulfate (Morphine Sulfate) 2 mg Q4H PRN IVP For Pain 12/27/16 23:30 01/03/17 23:29 Ondansetron HCl (Zofran) 4 mg Q6H PRN IVP Nausea & Vomiting 12/27/16 23:30 01/26/17 23:29 Pantoprazole (Protonix) 40 mg DAILY ORAL 12/30/16 09:00 01/29/17 08:59 Quetiapine Fumarate (SEROquel) 12.5 mg BEDTIME PRN ORAL Agitation 12/29/16 16:15 01/28/17 16:14 Assessment/Plan Status: stable Assessment/Plan anxiety d/o lexapro 10q daily Susan Ortega M.D. Dec 30, 2016 00:04
--- NOTE | 2016-12-30 01:01 | Consultation ---
DATE OF CONSULTATION: 12/29/2016 HEMATOLOGY/ONCOLOGY CONSULTATION CONSULTING PHYSICIAN: Myron Hernadez M.D. REQUESTING PHYSICIAN: Eben Guerrero M.D. REASON FOR CONSULTATION: Management of anemia. IDENTIFICATION DATA: Dear Dr. Eben Guerrero, The patient is a pleasant 81-year-old female with a past medical history significant for anxiety and diabetes mellitus, at this time presents to [facility] with complaints of right abdominal pain, 8/10. She describes it as sharp, deep, dull, localized to the right and mid abdomen and lower pole, began several days ago. Denies any diarrhea or constipation. No fevers or chills. No nausea or vomiting. CT scan completed of the abdomen and pelvis, which showed duodenitis, and ID service was consulted as well as Nephrology as well as surgical team and GI. EGD and colonoscopy are pending. The patient was noted to be anemic. Hematology/Oncology consulted as well. PAST MEDICAL HISTORY: As noted above. MEDICATIONS: Amlodipine, vitamin C, aspirin, benazepril, latanoprost, and metformin. ALLERGIES: No known drug allergies. FAMILY HISTORY: Noncontributory. REVIEW OF SYSTEMS: CONSTITUTIONAL: No fever, chills, or night sweats. SKIN: No rashes, bumps, or itching. HEENT: No headache, hearing or vision changes. BREASTS: No lumps, pain, or discharge. PULMONARY: No cough, sputum, or shortness of breath. GASTROINTESTINAL: No nausea, vomiting, or diarrhea. GENITOURINARY: No dysuria, frequency, or urgency. MUSCULOSKELETAL: No joint swelling, muscle pain, or trauma. PHYSICAL EXAMINATION: VITAL SIGNS: Reviewed. GENERAL: No acute distress. PULMONARY: Decreased breath sounds. CARDIOVASCULAR: Regular rate. No S3 or S4. ABDOMEN: Soft, nontender, and nondistended. EXTREMITIES: There is 1+ edema. LABORATORY DATA: BUN is 6, creatinine 0.6. . WBC 6.3, hemoglobin 11.3, and platelet count 287,000. ASSESSMENT AND RECOMMENDATIONS: 1. Anemia secondary to chronic disease. Workup has been completed. Continue to closely monitor. The patient with a history of duodenitis. The patient is status post EGD and colonoscopy. 2. Decreased hemoglobin and hematocrit, rule out gastrointestinal bleed. 3. Duodenitis, status post EGD and colonoscopy, status post biopsy. Results are pending on Helicobacter pylori. 4. Diabetes mellitus. Tight glucose control. A1c is pending. 5. Abdominal pain due to gastroduodenitis. I appreciate the consultation. Myron Hernadez M.D. DR: BLADE JOB#: [id number] CC:
[2016-12-30 04:00] VITALS: BP 147/77
[2016-12-30] MEDS: NovoLOG Insulin Flexpen SUBQ SCH (06:30)
[2016-12-30 07:13] LABS: BASOPHILS % (AUTO) 0.5 % (0.0-2.0); EOSINOPHILS % (AUTO) 0.9 % (0.0-3.0); LYMPHOCYTES % (AUTO) 25.2 % (20.0-45.0); MEAN CORPUSCULAR HGB CONC 32.8 G/DL (32.0-36.0); MEAN CORPUSCULAR VOLUME 92 FL (80-99); MEAN PLATELET VOLUME 6.2 FL (6.5-10.1); MONOCYTES % (AUTO) 5.7 % (1.0-10.0); NEUTROPHILS % (AUTO) 67.7 % (45.0-75.0); PLATELET COUNT 288 K/UL (150-450); RED BLOOD COUNT 3.77 M/UL (4.20-5.40); RED CELL DISTRIBUTION WIDTH 11.2 % (11.6-14.8); WHITE BLOOD COUNT 9.7 K/UL (4.8-10.8)
[2016-12-30 07:52] LABS: ANION GAP 8 (5-15); CALCIUM 9.1 MG/DL (8.5-10.1); CARBON DIOXIDE 22 MMOL/L (21-32); CHLORIDE 106 MMOL/L (98-107); CREATININE 0.6 MG/DL (0.55-1.30); POTASSIUM 3.5 MMOL/L (3.5-5.1); SODIUM 136 MMOL/L (136-145)
[2016-12-30 09:09] VITALS: BP 147/77
[2016-12-30] MEDS: Aspirin Baby 81mg ORAL SCH (09:09)
[2016-12-30] MEDS: Dorzolamide 2% Btl BOTH EYES SCH (09:10)
[2016-12-30] MEDS: D5NS 1,000 ML IV SCH (09:30)
--- NOTE | 2016-12-30 10:06 | Endoscopy Procedure Note ---
Endoscopy Procedure Note Indication for Procedure: ANEMIA Procedures Performed: EGD, colonoscopy Operative Findings/Diagnosis: gu, MULTIPLE POLYPS Specimen: yes Pt Tolerated Procedure Well: Yes Estimated Blood Loss: none Anesthesiologist: PETE Anesthesia: MAC Implant(s) used?: No 50 yrs or older w/o bx or poly: Not Applicable 10yrs. F/U not recommended: Not Applicable JOSH TORRES Dec 30, 2016 10:06
[2016-12-30] MEDS ORDERED: NS 275ml ONE (11:08)
[2016-12-30] MEDS ORDERED: D5NS 1000ml IV ONE (11:08)
[2016-12-30] MEDS ORDERED: Tubing IV Secondary IV ONE ×2 (11:08)
--- NOTE | 2016-12-30 11:56 | GI Progress Note ---
Assessment/Plan Problems: (1) Gastritis and duodenitis ICD Codes: K29.90 - Gastroduodenitis, unspecified, without bleeding SNOMED: 209208445 (2) Abdominal pain ICD Codes: R10.9 - Unspecified abdominal pain SNOMED: 04902464 (3) Diabetes mellitus ICD Codes: E11.9 - Type 2 diabetes mellitus without complications SNOMED: 24379014 Status: stable Status Narrative Discussed with Dr. Antoine. Assessment/Plan Endoscopy Procedure Note Indication for Procedure: ANEMIA Procedures Performed: EGD, colonoscopy Operative Findings/Diagnosis: gu, MULTIPLE POLYPS BRIANJOSH - Dec 30, 2016 10:06 ok for DC per GI standpoint >> needs outpatient follow up, will contact patient Rx protonix x 1 month repeat colonoscopy x 3 years The patient was seen and examined at bedside and all new and available data was reviewed in the patients chart. I agree with the above findings, impression and plan. (Patient seen earlier today. Signature stamp does not reflect patient encounter time.). - Vasile Antoine MD Subjective Gastrointestinal/Abdominal: Reports: no symptoms Objective Last 24 Hour Vital Signs Date Time Temp Pulse Resp B/P (MAP) Pulse Ox O2 Delivery O2 Flow Rate FiO2 12/30/16 09:09 147/77 12/30/16 09:09 83 147/77 12/30/16 04:00 97.9 83 20 147/77 98 Room Air 12/30/16 01:43 97.7 12/30/16 00:00 98.2 85 21 146/59 98 Room Air 12/29/16 15:46 97.7 80 19 144/57 99 Room Air 12/29/16 13:36 68 18 100 12/29/16 13:35 97.6 66 19 122/49 100 Nasal Cannula 3.0 12/29/16 13:34 67 18 100 12/29/16 13:25 69 19 130/48 100 Nasal Cannula 3.0 12/29/16 13:20 67 16 120/48 100 Nasal Cannula 3.0 12/29/16 13:15 97.2 69 16 111/47 100 Nasal Cannula 3.0 Laboratory Tests Test 12/30/16 05:05 White Blood Count 9.7 K/UL (4.8-10.8) # Red Blood Count 3.77 M/UL (4.20-5.40) L Hemoglobin 11.3 G/DL (12.0-16.0) L Hematocrit 34.6 % (37.0-47.0) L Mean Corpuscular Volume 92 FL (80-99) Mean Corpuscular Hemoglobin 30.0 PG (27.0-31.0) Mean Corpuscular Hemoglobin Concent 32.8 G/DL (32.0-36.0) Red Cell Distribution Width 11.2 % (11.6-14.8) L Platelet Count 288 K/UL (150-450) Mean Platelet Volume 6.2 FL (6.5-10.1) L Neutrophils (%) (Auto) 67.7 % (45.0-75.0) Lymphocytes (%) (Auto) 25.2 % (20.0-45.0) Monocytes (%) (Auto) 5.7 % (1.0-10.0) Eosinophils (%) (Auto) 0.9 % (0.0-3.0) Basophils (%) (Auto) 0.5 % (0.0-2.0) Sodium Level 136 MMOL/L (136-145) Potassium Level 3.5 MMOL/L (3.5-5.1) Chloride Level 106 MMOL/L (98-107) Carbon Dioxide Level 22 MMOL/L (21-32) Anion Gap 8 (5-15) Blood Urea Nitrogen 7 mg/dL (7-18) Creatinine 0.6 MG/DL (0.55-1.30) Estimat Glomerular Filtration Rate mL/min (>60) Glucose Level 149 MG/DL (74-106) H Calcium Level 9.1 MG/DL (8.5-10.1) Height (Feet): 5 Height (Inches): 5.00 Weight (Pounds): 140 General Appearance: no apparent distress, alert Cardiovascular: normal rate Respiratory/Chest: normal breath sounds, no respiratory distress Abdominal Exam: normal bowel sounds, non tender, soft Genitourinary/Rectal: normal rectal exam Extremities: normal range of motion, non-tender Qian Fernandez N.PValentin Dec 30, 2016 11:56 JOSH ANTOINE Jan 02, 2017 15:28
--- NOTE | 2016-12-30 13:43 | General Progress Note ---
Assessment/Plan Status: stable Assessment/Plan HTN DM Abd Pain Low Na low Mg adjust BP meds- mag and Na supplement Ok to DC ! Subjective Date patient seen: Dec 30, 2016 Time patient seen: 09:00 ROS Limited/Unobtainable: No Allergies: Coded Allergies: No Known Allergies (Unverified , 12/27/16) Objective Last 24 Hour Vital Signs Date Time Temp Pulse Resp B/P (MAP) Pulse Ox O2 Delivery O2 Flow Rate FiO2 12/30/16 09:09 147/77 12/30/16 09:09 83 147/77 12/30/16 04:00 97.9 83 20 147/77 98 Room Air 12/30/16 01:43 97.7 12/30/16 00:00 98.2 85 21 146/59 98 Room Air 12/29/16 15:46 97.7 80 19 144/57 99 Room Air Laboratory Tests 12/30/16 05:05: White Blood Count 9.7#, Red Blood Count 3.77L, Hemoglobin 11.3L, Hematocrit 34.6L, Mean Corpuscular Volume 92, Mean Corpuscular Hemoglobin 30.0, Mean Corpuscular Hemoglobin Concent 32.8, Red Cell Distribution Width 11.2L, Platelet Count 288, Mean Platelet Volume 6.2L, Neutrophils (%) (Auto) 67.7, Lymphocytes (%) (Auto) 25.2, Monocytes (%) (Auto) 5.7, Eosinophils (%) (Auto) 0.9, Basophils (%) (Auto) 0.5, Sodium Level 136, Potassium Level 3.5, Chloride Level 106, Carbon Dioxide Level 22, Anion Gap 8, Blood Urea Nitrogen 7, Creatinine 0.6, Estimat Glomerular Filtration Rate , Glucose Level 149H, Calcium Level 9.1 Height (Feet): 5 Height (Inches): 5.00 Weight (Pounds): 140 General Appearance: no apparent distress Objective PE not changed JOEL HERNANDEZ Dec 30, 2016 13:43
--- NOTE | 2016-12-30 14:05 | General Progress Note ---
Assessment/Plan Status: stable, progressing Subjective Neurologic/Psychiatric: Reports: anxiety, depressed, emotional problems Allergies: Coded Allergies: No Known Allergies (Unverified , 12/27/16) Objective Last 24 Hour Vital Signs Date Time Temp Pulse Resp B/P (MAP) Pulse Ox O2 Delivery O2 Flow Rate FiO2 12/30/16 09:09 147/77 12/30/16 09:09 83 147/77 12/30/16 04:00 97.9 83 20 147/77 98 Room Air 12/30/16 01:43 97.7 12/30/16 00:00 98.2 85 21 146/59 98 Room Air 12/29/16 15:46 97.7 80 19 144/57 99 Room Air Laboratory Tests 12/30/16 05:05: White Blood Count 9.7#, Red Blood Count 3.77L, Hemoglobin 11.3L, Hematocrit 34.6L, Mean Corpuscular Volume 92, Mean Corpuscular Hemoglobin 30.0, Mean Corpuscular Hemoglobin Concent 32.8, Red Cell Distribution Width 11.2L, Platelet Count 288, Mean Platelet Volume 6.2L, Neutrophils (%) (Auto) 67.7, Lymphocytes (%) (Auto) 25.2, Monocytes (%) (Auto) 5.7, Eosinophils (%) (Auto) 0.9, Basophils (%) (Auto) 0.5, Sodium Level 136, Potassium Level 3.5, Chloride Level 106, Carbon Dioxide Level 22, Anion Gap 8, Blood Urea Nitrogen 7, Creatinine 0.6, Estimat Glomerular Filtration Rate , Glucose Level 149H, Calcium Level 9.1 Height (Feet): 5 Height (Inches): 5.00 Weight (Pounds): 140 General Appearance: no apparent distress, alert Neurologic: responsive, disoriented, depressed affect Susan Ortega M.D. Dec 30, 2016 14:05
[2016-12-30] MEDS ORDERED: Pantoprazole Inj IVP SCH (14:30)
--- NOTE | 2016-12-30 14:57 | General Progress Note ---
Assessment/Plan Assessment/Plan ASSESSMENT AND RECOMMENDATIONS: 1. Anemia secondary to chronic disease. Workup has been completed. Continue to closely monitor. 2. Duodenitis. The patient is status post EGD and colonoscopy. 3. Diabetes mellitus. Tight glucose control. A1c is pending. 4. Abdominal pain due to gastroduodenitis. Subjective Constitutional: Reports: no symptoms HEENT: Reports: no symptoms Cardiovascular: Reports: no symptoms Respiratory: Reports: no symptoms Gastrointestinal/Abdominal: Reports: no symptoms Genitourinary: Reports: no symptoms Neurologic/Psychiatric: Reports: no symptoms Endocrine: Reports: no symptoms Hematologic/Lymphatic: Reports: no symptoms Allergies: Coded Allergies: No Known Allergies (Unverified , 12/27/16) Subjective NAD Objective Last 24 Hour Vital Signs Date Time Temp Pulse Resp B/P (MAP) Pulse Ox O2 Delivery O2 Flow Rate FiO2 12/30/16 09:09 147/77 12/30/16 09:09 83 147/77 12/30/16 04:00 97.9 83 20 147/77 98 Room Air 12/30/16 01:43 97.7 12/30/16 00:00 98.2 85 21 146/59 98 Room Air 12/29/16 15:46 97.7 80 19 144/57 99 Room Air Laboratory Tests 12/30/16 05:05: White Blood Count 9.7#, Red Blood Count 3.77L, Hemoglobin 11.3L, Hematocrit 34.6L, Mean Corpuscular Volume 92, Mean Corpuscular Hemoglobin 30.0, Mean Corpuscular Hemoglobin Concent 32.8, Red Cell Distribution Width 11.2L, Platelet Count 288, Mean Platelet Volume 6.2L, Neutrophils (%) (Auto) 67.7, Lymphocytes (%) (Auto) 25.2, Monocytes (%) (Auto) 5.7, Eosinophils (%) (Auto) 0.9, Basophils (%) (Auto) 0.5, Sodium Level 136, Potassium Level 3.5, Chloride Level 106, Carbon Dioxide Level 22, Anion Gap 8, Blood Urea Nitrogen 7, Creatinine 0.6, Estimat Glomerular Filtration Rate , Glucose Level 149H, Calcium Level 9.1 Height (Feet): 5 Height (Inches): 5.00 Weight (Pounds): 140 General Appearance: no apparent distress EENT: normal ENT inspection Cardiovascular: regular rhythm Abdomen: normal bowel sounds Skin: normal pigmentation, warm/dry Myron Hernadez Dec 30, 2016 14:56
--- NOTE | 2017-01-02 08:16 | Procedure Note ---
DATE OF PROCEDURE: 12/29/2016 SURGEON: Kadeem Antoine M.D. PROCEDURE: Upper endoscopy with biopsy and colonoscopy with snare polypectomy and biopsy. ANESTHESIOLOGIST: Palma Estrada M.D. INSTRUMENT: Olympus adult flexible upper endoscope and colonoscope. INDICATION: Anemia and abdominal pain. REASON FOR PROCEDURE: The procedure, risks, benefits, and possible consequences, including hemorrhage, aspiration, perforation and infection, and alternative treatments, were explained to the patient/legal guardian by Dr. Kadeem Antoine and the patient/legal guardian understood and accepted these risks. DESCRIPTION OF PROCEDURE: After informed consent was obtained and the patient was adequately sedated, the Olympus upper endoscope was advanced from mouth into the second portion of the duodenum and retroflexion was performed in the stomach. The patient had a clean based ulcer in the pre-pyloric region. Ulcer measured roughly about 1 cm. No adherent clot. No visible vessel. No active bleeding at this time. Random biopsy from body and antrum was obtained to rule out H. pylori infection. At this time, the upper endoscope was retrieved and the patient was turned over for colonoscopy. First, a rectal exam was performed, which was positive for internal hemorrhoids. Then the scope was advanced from the rectum into the cecum, documented by appendiceal orifice, ileocecal valve, and right upper quadrant palpation. Quality of prep was very good. The patient had a total of seven polyps in this colonoscopy examination. The largest polyp was in the rectum, just above the dentate line, measured roughly about 1 cm in size, which was removed with the snare polypectomy technique. There was another smaller polyp next to it, may be 4 mm, removed with the cold snare. There was another polyp in the rectum that was removed with the biopsy. There was one polyp in the ascending colon, one polyp in transverse colon, two polyps in sigmoid colon, and those polyps were all removed with the cold biopsy forceps technique. The patient also had some scattered diverticulosis in the left colon. Retroflexion of rectum showed evidence of internal hemorrhoids. SUMMARY OF FINDINGS: 1. Gastric ulcers, see above for details. 2. Gastritis, status post biopsy. 3. Seven colonic polyps removed, see above for details. 4. Diverticulosis. 5. Internal hemorrhoids. RECOMMENDATIONS: Follow up biopsies and treat accordingly. We will plan to treat for H. pylori if it is positive. Meanwhile, we will start the patient on PPI daily. The patient to follow up in the office in two weeks. colonoscopy given seven polyps, the patient would need a repeat colonoscopy in three years. I want to thank Dr. Eben Guerrero for this kind referral. Kadeem Antoine M.D. DR: LUIZ JOB#: [id number] CC: Eben Guerrero M.D.; Fax#: [phone]
--- NOTE | 2017-01-03 13:25 | Discharge Summary ---
Discharge Summary Hospital Course Date of Admission Dec 27, 2016 at 17:38 Date of Discharge Dec 30, 2016 at 11:09 Admitting Diagnosis Abdominal Pain HPI Danna Jewell is a 81 year old female who was admitted on Dec 27, 2016 at 17:38 for Abdominal Pain Hospital Course dc summary # [id number] Discharge Medications Continued Medications: Amlodipine Besylate* (Amlodipine Besylate*) 5 Mg Tablet 5 MG ORAL DAILY, TAB Ascorbic Acid* (Vitamin C*) 500 Mg Tablet 500 MG ORAL DAILY, #30 TAB 0 Refills Aspirin Ec* (Aspirin Ec*) 81 Mg Tablet.dr 81 MG ORAL DAILY, TAB Benazepril Hcl* (Benazepril Hcl*) 40 Mg Tablet 40 MG ORAL DAILY, TAB Calcium Carbonate (Calcium) 500 Mg Tablet 500 MG PO, TAB Dorzolamide Hcl* (Trusopt*) 10 Ml Drops 1 DROP BOTH EYES BID, #1 ML 0 Refills Latanoprost* (Xalatan*) 2.5 Ml Drops 1 DROP BOTH EYES BID, #2.5 ML 0 Refills Metformin Hcl* (Metformin Hcl*) 1,000 Mg Tablet 1000 MG ORAL BID, TAB [place]-3 Fatty Acids ([place]-3) 1,000 Mg Capsule 1000 MG PO, CAP Discharge Condition Upon Discharge: stable Discharge Disposition Patient was discharged to Home (01) Discharge Diagnoses: Discharge Instructions Discharge Instructions Special Instructions I have been assigned to complete a D/C Summary on this account. I was not involved in the patient management Kathia Herrera NP ([place]) Jan 03, 2017 13:25
--- NOTE | 2017-01-04 05:15 | Discharge Summary 2 SIG ---
DATE OF ADMISSION: 12/27/2016 DATE OF DISCHARGE: 12/30/2016 REASON FOR ADMISSION: 81-year-old female with a history of diabetes and anxiety, presented with right-sided middle abdominal pain. The patient denied nausea, vomiting, diarrhea, or constipation. Pain was intermittent for two weeks, not associated with any other symptoms. She denied fever, chills, or cough. Denied heartburn. According to the patient, few weeks ago, she was hospitalized at [facility] [place] and was diagnosed with gallstones, but no surgery was recommended at that time. CT of the abdomen was done in the emergency room and revealed possible mild enteritis, and evidence of possible gastritis versus duodenitis. No other acute process. The patient was admitted with abdominal pain, gastritis, and duodenitis for further management. HOSPITAL STAY: The patient was admitted. The patient was started on IV fluids. Pain management provided. GI consult was requested. The patient undergone EGD and colonoscopy, which revealed gastric ulcer, gastritis, diverticulosis, and internal hemorrhoids. Seven colonic polyps were removed. Biopsy of the stomach revealed evidence of H. pylori infection. Biopsy of polyps revealed tubular adenoma, but no high-grade dysplasia. The patient will follow up with GI as outpatient fro treatment of H pylori infection. The patient was already contacted. Initially scheduled to follow up in two weeks. The patient was contacted to come next week and treatment for H. pylori will be started as an outpatient. In the hospital, pain management was provided. Abdominal pain was likely due to gastritis, duodenitis, H pylori infection, gastric ulcer. Pain management was addressed, pain was controlled. Surgical consult was requested in lieu of recent history of the gallstones. According to surgery evaluation, there was no need for surgical intervention. No evidence of gallstone disease on the CT. LFT and bilirubin were stable, continue to observe. Commercial Retoucher followed the patient. The patient had hypertension. Blood pressure medications were titrated by cleaning laborer. The patient with evidence of hyponatremia and hypomagnesemia. Electrolyte imbalance was corrected by cleaning laborer and electrolytes were stable afterwards. Hemoglobin A1c -8. Blood sugar management needs to be further optimized as outpatient. Psychiatrist seen and evaluated the patient, diagnosed her with anxiety, and started her on Lexapro. Fountain Clerk followed due to the anemia. Per geological aide, anemia likely secondary to chronic disease. The patient was stable for discharge home and follow up with GI as advised. FINAL DIAGNOSES: 1. Abdominal pain 2. Gastritis, 3. Duodenitis, 4. Status post esophagogastroduodenoscopy and colonoscopy, 5. Helicobacter pylori infection, 6. Gastric ulcer, &. Diverticulosis, 9. Internal hemorrhoids 10. Status post multiple colonic polyps removal. 11. Anemia secondary to chronic disease. 12. Diabetes mellitus. 13. Hypertension. 14. Hyponatremia. 15. Hypomagnesemia. 16. Anxiety. DISCHARGE MEDICATIONS: See medication reconciliation list. DISCHARGE INSTRUCTIONS: The patient was discharged home. FOLLOWUP: Follow up with GI as outpatient. Eben Guerrero M.D. I have been assigned to dictate discharge summary on this account and I was not involved in the patient's management. Kathia LunsfordCreedmoor Psychiatric CenterJon N.PValentin DR: GREGORY JOB#: [id number] CC: ADRIANE
--- NOTE | 2017-01-09 12:20 | Cardiology Report ---
APPROVED REPORT EKG Measurement Heart [id number] Normal sinus rhythm Normal ECG
--- NOTE | 2017-01-13 22:45 | Consultation ---
DATE OF CONSULTATION: 12/28/2016 COPIED PREVIOUS FILE CONTENT PER REQUEST INFECTIOUS DISEASE CONSULTATION CONSULTING PHYSICIAN: Salas Acevedo M.D. REQUESTING PHYSICIAN: Eben Guerrero M.D. REASON FOR CONSULTATION: Abdominal pain, duodenitis, rule out infectious etiology. HISTORY OF PRESENT ILLNESS: The patient is an 81-year-old female with past medical history of diabetes and anxiety presented to [facility] with chief complaint of right mid abdominal pain, which is 8/10. She describes it as a sharp, deep dull ache, localized in the right mid abdomen and lower abdomen, also started for several days. The patient denies any diarrhea or constipation. No fever or chills. Denied any nausea or vomiting but she has poor oral intake. No dysuria, hematuria, or discharge. No cough or shortness of breath. No fever or chills. The patient had a CT scan of the abdomen and pelvis in the emergency room which showed evidence of duodenitis so I was consulted by the primary provider for antibiotics choice and to rule out infectious etiology. PAST MEDICAL HISTORY: Significant for diabetes, hypertension, and anxiety. PAST SURGICAL HISTORY: Negative. MEDICATIONS: The patient received morphine, dicyclomine, Mylanta, Zofran, and Pepcid in the emergency room. For the rest of her medications, please refer to MAR. ALLERGIES: No known drug allergy. SOCIAL HISTORY: The patient lives with family. Denied using any drugs, tobacco, or alcohol. FAMILY HISTORY: Noncontributory. REVIEW OF SYSTEMS: A 12-point of system reviewed were all negative apart from the one I mentioned above in my H and P. PHYSICAL EXAMINATION: VITAL SIGNS: Temperature 97 degrees, pulse 73, respirations 15, blood pressure 155/75, and saturation 100% on room air. GENERAL: An elderly female, [place] speaker, lying in bed, complaining of mild abdominal discomfort, and not in acute distress. HEENT: Normocephalic and atraumatic. Pupils are reactive to light. Moist oral most. No exudate or thrush. NECK: Supple. No lymphadenopathy. CARDIOVASCULAR: Regular rate and rhythm. No murmur. No gallop. LUNGS: Clear bilaterally. No wheezing or rhonchi. ABDOMEN: Soft and tender diffusely. No rebound. No organomegaly. No ascites. EXTREMITY: No edema or cyanosis. SKIN: No rash. No hives. No ulcers. NEUROLOGIC: Nonfocal with intact cranial nerves. LABORATORY DATA: White count of 9.9, hemoglobin of 12.9, and platelet count of 335,000. BUN of 11 and creatinine of 0.8. AST of 15 and ALT of 14. Urinalysis negative for infection. Imaging, chest x-ray, no acute process. IMAGING: The patient had a chest x-ray on 12/27/2016, it showed no acute process. Abdominal CT scan and pelvis with contrast showed fluid-filled colon and distal small bowel, could indicate mild enteritis changes and equivocal wall thickening of the distal gastric antrum and proximal duodenum, more likely artifact of underdistention. No acute process otherwise. ASSESSMENT AND RECOMMENDATIONS: 1. Gastritis and duodenitis, rule out Helicobacter pylori. We will send stool antigen test for screening. Consider esophagogastroduodenoscopy with biopsy for confirmation. Further recommendation as per Gastroenterology. 2. Abdominal pain due to the above. Continue anti-acid and pain management. Further recommendation as per Gastroenterology. Thank you for the consultation. Infectious Disease will continue to follow. Salas Acevedo M.D. DR: CR JOB#: [id number] CC:
== END 2016-12-30 11:09 | disposition home or self-care (01) | DRG 392 ==
LOC: EDBD 15:17 → EMR 16:35 → 4W 17:38 → EDBEDREQ 18:23 → 4W 19:46
DX: K29.90 Gastroduodenitis, unspecified, without bleeding (principal); E11.9 Type 2 diabetes mellitus without complications; E87.1 Hypo-osmolality and hyponatremia; K25.9 Gastric ulcer, unspecified as acute or chronic, without hemorrhage or perforation; D63.8 Anemia in other chronic diseases classified elsewhere; I10 Essential (primary) hypertension; B96.81 Helicobacter pylori [H. pylori] as the cause of diseases classified elsewhere; R10.9 Unspecified abdominal pain; E83.42 Hypomagnesemia; F41.9 Anxiety disorder, unspecified; K57.90 Diverticulosis of intestine, part unspecified, without perforation or abscess without bleeding; K64.8 Other hemorrhoids; H40.9 Unspecified glaucoma; E87.6 Hypokalemia; K63.5 Polyp of colon
CPT/HCPCS: 36415; 71010; 74177; 80048; 80053; 80061; 81003; 82550; 82553; 82607; 82746; 82962; 82977; 83036; 83690; 83735; 83880; 84100; 84443; 84484; 84550; 85025; 85610; 85730; 86140; 86677; 93005; 94003; 94150; 99285; J1815; J2405